=== PATIENT | female | born 1995 | race American Indian/Alaskan Native ===

== ENCOUNTER 2017-04-19 01:09 | Emergency (ER) | payer SELFPAY ==
[2017-04-19 02:01] VITALS: BP 159/96
== END 2017-04-19 02:00 | disposition left against medical advice (07) ==
LOC: ED 01:09
DX: M25.461 Effusion, right knee (principal); Z53.21 Procedure and treatment not carried out due to patient leaving prior to being seen by health care provider

== ENCOUNTER 2017-06-13 18:40 | Emergency (ER) | payer OTHER ==
[2017-06-13 19:25] LABS: Hematocrit 33.4 % (30.3-42.9); Hemoglobin 10.4 gm/dl (10.1-14.3); Mean Corpuscular HGB Conc 31 % (30-34); Mean Corpuscular Volume 77 fl (79-97); Platelet Count 381 K/mm3 (140-440); Red Blood Count 4.32 M/mm3 (3.65-5.03); Red Cell Distribution Width 16.7 % (13.2-15.2); White Blood Count 10.1 K/mm3 (4.5-11.0)
[2017-06-13 19:36] LABS: Mean Corpuscular Hemoglobin 24 pg (28-32)
--- NOTE | 2017-06-13 20:46 | Ultrasound Report ---
FINAL REPORT PROCEDURE: US OB \T\lt; = 14 WEEKS FETUS TECHNIQUE: Real-time transabdominal sonography of the uterus, placenta, amniotic fluid, adnexa, and fetus was performed with image documentation. Measurements were obtained to determine age/size. M-mode Doppler was used to document heartbeat. CPT 30053 HISTORY: Vaginal bleeding COMPARISON: No prior studies are available for comparison. FINDINGS: Uterus measures 8.7 x 4.4 x 5.3 centimeters. The endometrium is thickened at 2.2 centimeters. There is no endometrial fluid collection. There is no intrauterine gestational sac. The right ovary measures 2.2 x 2 x 2 centimeters. There is no mass or cyst or torsion. The left ovary is not seen. There is no free pelvic fluid. IMPRESSION: No demonstrated intrauterine or ectopic . The left ovary is not seen.
--- NOTE | 2017-06-13 20:47 | Ultrasound Report ---
FINAL REPORT PROCEDURE: US OB \T\lt; = 14 WEEKS FETUS TECHNIQUE: Real-time transvaginal sonography of the uterus, placenta, amniotic fluid, adnexa, and fetus was performed with image documentation. Measurements were obtained to determine age/size. M-mode Doppler was used to document heartbeat. HISTORY: Vaginal bleeding COMPARISON: No prior studies are available for comparison. FINDINGS: Uterus measures 8.7 x 4.4 x 5.3 centimeters. The endometrium is thickened at 2.2 centimeters. There is no endometrial fluid collection. There is no intrauterine gestational sac. The right ovary measures 2.2 x 2 x 2 centimeters. There is no mass or cyst or torsion. The left ovary is not seen. There is no free pelvic fluid. IMPRESSION: No demonstrated intrauterine or ectopic . The left ovary is not seen.
[2017-06-13 21:32] LABS: Alanine Aminotransferase 14 units/L (7-56); Albumin/Globulin Ratio 1.1 %; Alkaline Phosphatase 52 units/L (35-129); Anion Gap 20 mmol/L; Blood Urea Nitrogen 5 mg/dL (7-17); Calcium 9.1 mg/dL (8.4-10.2); Carbon Dioxide 21 mmol/L (22-30); Chloride 100.8 mmol/L (98-107); Glucose 91 mg/dL (65-100); Lipase 16 units/L (13-60); Sodium 138 mmol/L (137-145); Total Protein 7.6 g/dL (6.3-8.2)
[2017-06-14] MEDS ORDERED: TORADOL IM ONE (04:24)
[2017-06-14] MEDS ORDERED: NORCO 10/325 PO ONE (04:25)
[2017-06-14] MEDS ORDERED: PERCOCET 5/325 PO ONE (05:17)
--- NOTE | 2017-06-14 05:20 | Emergency Department Report ---
ED Female HPI - General Chief complaint: Vaginal Bleeding Stated complaint: MENSTRAL CYCLE MONTH AND HALF/ABD/BACK PAIN/NAUSEA Time Seen by Provider: 06/14/17 02:20 Source: patient Mode of arrival: Ambulatory Limitations: No Limitations - History of Present Illness Initial comments: She is a 22-year-old female who presents with vaginal bleeding and back pain she states that her vaginal bleeding has been going on for the past months she states that her pain is a 10 out 10 A she is having pelvic pain. It's located in her pelvis it doesn't radiate anywhere nothing makes it better or worse. The pain is constant and it's a crampy type of pain. She also states that she also has nausea and vomiting with the pelvic pain. Patient states that she is sexually active she doesn't use protection. She states that she uses out 7 pads a day. - Related Data Previous Rx's Medication Instructions Recorded Last Taken Type metroNIDAZOLE [Flagyl] 500 mg PO BID #20 tablet 12/28/14 Unknown Rx ALBUTEROL Inhaler [ProAir HFA 2 puff IH QID PRN #1 inhalation 04/24/15 Unknown Rx Inhaler] Acetamin/Codeine 120-12Mg/5 ml 5 ml PO TID PRN #30 ml 04/24/15 Unknown Rx [Tylenol/Codeine] Ibuprofen [Motrin] 800 mg PO Q8H PRN #60 tablet 04/24/15 Unknown Rx Prednisone [Prednisone 10 mg 10 mg PO .TAPER #1 tab.ds.pk 04/24/15 Unknown Rx (6-Day Pack, 21 Tabs)] Ondansetron [Zofran Odt] 4 mg PO Q6H PRN #14 tab.rapdis 06/26/15 Unknown Rx traMADol [Ultram 50 MG tab] 50 mg PO Q6HR PRN #14 tablet 06/26/15 Unknown Rx Azithromycin [Zithromax Z-JELENA] 250 mg PO DAILY #6 tablet 12/06/15 Unknown Rx Promethazine [Phenergan TAB] 25 mg PO Q8HR PRN #6 tab 12/06/15 Unknown Rx metroNIDAZOLE [Flagyl] 500 mg PO Q12HR #14 tab 12/06/15 Unknown Rx Ibuprofen [Motrin 800 MG tab] 800 mg PO Q8HR PRN #20 tablet 07/11/16 Unknown Rx Naproxen [Naproxen TAB] 250 mg PO Q8HR PRN #15 tablet 06/14/17 Unknown Rx traMADol [Ultram 50 MG tab] 50 mg PO Q6HR PRN #15 tablet 06/14/17 Unknown Rx Allergies Allergy/AdvReac Type Severity Reaction Status Date / Time No Known Allergies Allergy Verified 12/28/14 14:11 ED Review of Systems ROS: Stated complaint: MENSTRAL CYCLE MONTH AND HALF/ABD/BACK PAIN/NAUSEA Other details as noted in HPI Constitutional: denies: chills, fever Eyes: denies: eye pain, eye discharge, vision change ENT: denies: ear pain, throat pain Respiratory: denies: cough, shortness of breath, wheezing Cardiovascular: denies: chest pain, palpitations Endocrine: no symptoms reported Gastrointestinal: denies: abdominal pain, nausea, diarrhea Genitourinary: abnormal menses, other (vaginal bleeding). denies: urgency, dysuria, discharge Musculoskeletal: denies: back pain, joint swelling, arthralgia Skin: denies: rash, lesions Neurological: denies: headache, weakness, paresthesias Psychiatric: denies: anxiety, depression Hematological/Lymphatic: denies: easy bleeding, easy bruising ED Past Medical Hx - Past Medical History Hx Hypertension: No Hx CVA: No Hx Heart Attack/AMI: No Hx Congestive Heart Failure: No Hx Diabetes: No Hx Deep Vein Thrombosis: No Hx Pulmonary Embolism: No Hx GERD: No Hx Liver Disease: No Hx Renal Disease: No Hx Sickle Cell Disease: No Hx Arthritis: No Hx Headaches / Migraines: No Hx Seizures: No Hx Kidney Stones: No Hx Psychiatric Treatment: No Hx Asthma: Yes (in childhood) Hx COPD: No Hx Tuberculosis: No Hx Dementia: No Hx HIV: No - Surgical History Hx Coronary Stent: No Hx Open Heart Surgery: No Hx Pacemaker: No Hx Internal Defibrillator: No Hx Cholecystectomy: No Hx Appendectomy: No Hx Breast Surgery: No - Social History Smoking Status: Never Smoker Substance Use Type: None - Medications Home Medications: Home Medications Medication Instructions Recorded Confirmed Last Taken Type metroNIDAZOLE [Flagyl] 500 mg PO BID #20 tablet 12/28/14 Unknown Rx ALBUTEROL Inhaler [ProAir HFA 2 puff IH QID PRN #1 inhalation 04/24/15 Unknown Rx Inhaler] Acetamin/Codeine 120-12Mg/5 ml 5 ml PO TID PRN #30 ml 04/24/15 Unknown Rx [Tylenol/Codeine] Ibuprofen [Motrin] 800 mg PO Q8H PRN #60 tablet 04/24/15 Unknown Rx Prednisone [Prednisone 10 mg 10 mg PO .TAPER #1 tab.ds.pk 04/24/15 Unknown Rx (6-Day Pack, 21 Tabs)] Ondansetron [Zofran Odt] 4 mg PO Q6H PRN #14 tab.rapdis 06/26/15 Unknown Rx traMADol [Ultram 50 MG tab] 50 mg PO Q6HR PRN #14 tablet 06/26/15 Unknown Rx Azithromycin [Zithromax Z-EJLENA] 250 mg PO DAILY #6 tablet 12/06/15 Unknown Rx Promethazine [Phenergan TAB] 25 mg PO Q8HR PRN #6 tab 12/06/15 Unknown Rx metroNIDAZOLE [Flagyl] 500 mg PO Q12HR #14 tab 12/06/15 Unknown Rx Ibuprofen [Motrin 800 MG tab] 800 mg PO Q8HR PRN #20 tablet 07/11/16 Unknown Rx Naproxen [Naproxen TAB] 250 mg PO Q8HR PRN #15 tablet 06/14/17 Unknown Rx traMADol [Ultram 50 MG tab] 50 mg PO Q6HR PRN #15 tablet 06/14/17 Unknown Rx ED Physical Exam - General Limitations: No Limitations General appearance: alert, in no apparent distress - Head Head exam: Present: atraumatic, normocephalic - Eye Eye exam: Present: normal appearance - ENT ENT exam: Present: mucous membranes moist - Neck Neck exam: Present: normal inspection - Respiratory Respiratory exam: Present: normal lung sounds bilaterally. Absent: respiratory distress - Cardiovascular Cardiovascular Exam: Present: regular rate, normal rhythm. Absent: systolic murmur, diastolic murmur, rubs, gallop - GI/Abdominal GI/Abdominal exam: Present: soft, normal bowel sounds - Speculum exam: Present: vaginal bleeding (large amount of vaginal bleeding with poc), other (cervical os is open) Bi-manual exam: Absent: cervical motion tendernes, adnexal tenderness - Extremities Exam Extremities exam: Present: normal inspection - Back Exam Back exam: Present: normal inspection - Neurological Exam Neurological exam: Present: alert, oriented X3, CN II-XII intact - Psychiatric Psychiatric exam: Present: normal affect, normal mood ED Course Vital Signs 06/13/17 06/14/17 06/14/17 19:05 02:21 02:23 Temperature 98.3 F Pulse Rate 95 H 77 Respiratory 18 Rate Blood Pressure 154/96 O2 Sat by Pulse 100 99 100 Oximetry 06/14/17 06/14/17 02:24 04:40 Temperature Pulse Rate 74 Respiratory 13 20 Rate Blood Pressure 125/61 O2 Sat by Pulse 98 Oximetry - Reevaluation(s) Reevaluation #1: 06/14/17 05:23 Patient had a pelvic exam gave patient IM Toradol and oral [place].. ED Medical Decision Making - Lab Data Result diagrams: 06/13/17 19:12 06/13/17 19:12 Lab Results 06/13/17 06/13/17 06/13/17 Range/Units 19:12 19:12 19:12 WBC 10.1 (4.5-11.0) K/mm3 RBC 4.32 (3.65-5.03) M/mm3 Hgb 10.4 (10.1-14.3) gm/dl Hct 33.4 (30.3-42.9) % MCV 77 L (79-97) fl MCH 24 L (28-32) pg MCHC 31 (30-34) % RDW 16.7 H (13.2-15.2) % Plt Count 381 (140-440) K/mm3 Sodium 138 (137-145) mmol/L Potassium 4.0 (3.6-5.0) mmol/L Chloride 100.8 (98-107) mmol/L Carbon Dioxide 21 L (22-30) mmol/L Anion Gap 20 mmol/L BUN 5 L (7-17) mg/dL Creatinine 0.5 L (0.7-1.2) mg/dL Estimated GFR > 60 ml/min BUN/Creatinine Ratio 10.00 % Glucose 91 (65-100) mg/dL Calcium 9.1 (8.4-10.2) mg/dL Total Bilirubin 0.30 (0.1-1.2) mg/dL AST 12 (5-40) units/L ALT 14 (7-56) units/L Alkaline Phosphatase 52 (35-129) units/L Total Protein 7.6 (6.3-8.2) g/dL Albumin 4.0 (3.9-5) g/dL Albumin/Globulin Ratio 1.1 % Lipase 16 (13-60) units/L HCG, Quant 95.02 H (0-4) mIU/mL Blood Type 06/13/17 Range/Units 20:00 WBC (4.5-11.0) K/mm3 RBC (3.65-5.03) M/mm3 Hgb (10.1-14.3) gm/dl Hct (30.3-42.9) % MCV (79-97) fl MCH (28-32) pg MCHC (30-34) % RDW (13.2-15.2) % Plt Count (140-440) K/mm3 Sodium (137-145) mmol/L Potassium (3.6-5.0) mmol/L Chloride (98-107) mmol/L Carbon Dioxide (22-30) mmol/L Anion Gap mmol/L BUN (7-17) mg/dL Creatinine (0.7-1.2) mg/dL Estimated GFR ml/min BUN/Creatinine Ratio % Glucose (65-100) mg/dL Calcium (8.4-10.2) mg/dL Total Bilirubin (0.1-1.2) mg/dL AST (5-40) units/L ALT (7-56) units/L Alkaline Phosphatase (35-129) units/L Total Protein (6.3-8.2) g/dL Albumin (3.9-5) g/dL Albumin/Globulin Ratio % Lipase (13-60) units/L HCG, Quant (0-4) mIU/mL Blood Type O POSITIVE - Radiology Data Radiology results: report reviewed, image reviewed Transvaginal ultrasound shows no signs of ectopic or intrauterine ultrasound shows no gestational sac. - Medical Decision Making Chief medical diagnosis: Inevitable miscarriage Differential medical diagnosis: Dysfunctional uterine bleeding, , ectopic CBC, type and screen, CMP, IM Toradol, oral analgesic medication, transvaginal ultrasound Transvaginal ultrasound shows no IUP and no signs of ectopic . Pelvic exam shows open cervix os I pulled I pulled out the products of conception and some of the blood clots. Pt states that she is feeling better. 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 gave patient return precautions come to the ED additional verbal discharge instructions were given. Critical care attestation.: If time is entered above; I have spent that time in minutes in the direct care of this critically ill patient, excluding procedure time. ED Disposition Clinical Impression: Pelvic pain, Miscarriage, Vaginal bleeding Disposition: TO HOME OR SELFCARE Is pt being admited?: No Does the pt Need Aspirin: No Condition: Stable Instructions: Spontaneous Miscarriage (ED), Menstruation (ED) Prescriptions: Naproxen [Naproxen TAB] 250 mg PO Q8HR PRN #15 tablet PRN Reason: Pain traMADol [Ultram 50 MG tab] 50 mg PO Q6HR PRN #15 tablet PRN Reason: Pain Referrals: KONSTANTIN COTE MD [Staff Physician] - 3-5 Days Time of Disposition: 05:37
[2017-06-14 06:17] VITALS: BP 113/52
== END 2017-06-14 06:40 | disposition home or self-care (01) ==
LOC: ED 18:40
DX: O03.9 Complete or unspecified spontaneous abortion without complication (principal); J45.909 Unspecified asthma, uncomplicated; Z3A.00 Weeks of gestation of pregnancy not specified
CPT/HCPCS: 36415; 76801; 76817; 80053; 83690; 84702; 85027; 86900; 86901; 96372; 99284; J1885

== ENCOUNTER 2017-11-24 09:34 | Emergency (ER) | payer SELFPAY ==
[2017-11-24 09:44] VITALS: BP 143/71
[2017-11-24 11:58] LABS: HCG Qualitative,Urine Negative (Negative)
--- NOTE | 2017-11-24 12:52 | XRay Report ---
RIGHT FOOT, 3 views: History: right foot pain. The bony architecture is intact. Bony alignment is normal. No soft tissue abnormalities are seen. The joint spaces appear preserved. A moderate plantar spur is identified. IMPRESSION: Plantar spur.
--- NOTE | 2017-11-24 14:02 | Emergency Department Report ---
HPI - General Chief Complaint: Extremity Injury, Lower Time Seen by Provider: 11/24/17 13:00 - HPI HPI: She reports right-sided pain for months. She said pain is in her right heel. Denies any injury. Denies any numbness or tingling. Pain is 10 out of 10 in hurts. Patient says it's worse when she is or congestion stand. Denies any radiation of pain proximally. No [id number] pain medication taken. ED Past Medical Hx - Past Medical History Previous Medical History?: Yes Hx Hypertension: No Hx CVA: No Hx Heart Attack/AMI: No Hx Congestive Heart Failure: No Hx Diabetes: No Hx Deep Vein Thrombosis: No Hx Pulmonary Embolism: No Hx GERD: No Hx Liver Disease: No Hx Renal Disease: No Hx Sickle Cell Disease: No Hx Arthritis: No Hx Headaches / Migraines: No Hx Seizures: No Hx Kidney Stones: No Hx Psychiatric Treatment: No Hx Asthma: Yes (in childhood) Hx COPD: No Hx Tuberculosis: No Hx Dementia: No Hx HIV: No - Surgical History Past Surgical History?: No Hx Coronary Stent: No Hx Open Heart Surgery: No Hx Pacemaker: No Hx Internal Defibrillator: No Hx Cholecystectomy: No Hx Appendectomy: No Hx Breast Surgery: No - Family History Family history: no significant - Social History Smoking Status: Current Every Day Smoker Substance Use Type: None - Medications Home Medications: Home Medications Medication Instructions Recorded Confirmed Last Taken Type metroNIDAZOLE [Flagyl] 500 mg PO BID #20 tablet 12/28/14 Unknown Rx ALBUTEROL Inhaler [ProAir HFA 2 puff IH QID PRN #1 inhalation 04/24/15 Unknown Rx Inhaler] Acetamin/Codeine 120-12Mg/5 ml 5 ml PO TID PRN #30 ml 04/24/15 Unknown Rx [Tylenol/Codeine] Ibuprofen [Motrin] 800 mg PO Q8H PRN #60 tablet 04/24/15 Unknown Rx Prednisone [Prednisone 10 mg 10 mg PO .TAPER #1 tab.ds.pk 04/24/15 Unknown Rx (6-Day Pack, 21 Tabs)] Ondansetron [Zofran Odt] 4 mg PO Q6H PRN #14 tab.rapdis 06/26/15 Unknown Rx traMADol [Ultram 50 MG tab] 50 mg PO Q6HR PRN #14 tablet 06/26/15 Unknown Rx Azithromycin [Zithromax Z-JELENA] 250 mg PO DAILY #6 tablet 12/06/15 Unknown Rx Promethazine [Phenergan TAB] 25 mg PO Q8HR PRN #6 tab 12/06/15 Unknown Rx metroNIDAZOLE [Flagyl] 500 mg PO Q12HR #14 tab 12/06/15 Unknown Rx Ibuprofen [Motrin 800 MG tab] 800 mg PO Q8HR PRN #20 tablet 07/11/16 Unknown Rx Naproxen [Naproxen TAB] 250 mg PO Q8HR PRN #15 tablet 06/14/17 Unknown Rx traMADol [Ultram 50 MG tab] 50 mg PO Q6HR PRN #15 tablet 06/14/17 Unknown Rx Naproxen [Naprosyn] 500 mg PO Q12H PRN #20 tablet 11/24/17 Unknown Rx ED Review of Systems ROS: Stated complaint: PAIN IN HEEL Other details as noted in HPI Comment: All other systems reviewed and negative Constitutional: no symptoms reported Respiratory: no symptoms reported Cardiovascular: denies: chest pain, palpitations, dyspnea on exertion, edema, syncope, paroxysmal nocturnal dyspnea Gastrointestinal: denies: abdominal pain, nausea, vomiting Genitourinary: denies: urgency, dysuria, frequency Musculoskeletal: arthralgia. denies: back pain, joint swelling, myalgia Skin: denies: rash Neurological: denies: headache, numbness, paresthesias, abnormal gait Physical Exam - Physical Exam Vital Signs: Vital Signs 11/24/17 09:41 Temperature 97.8 F Pulse Rate 88 Respiratory 18 Rate Blood Pressure 143/71 O2 Sat by Pulse 100 Oximetry General: This is a 22-year-old female well-nourished well-developed in no acute distress. Physical Exam: Head: Normocephalic, atraumatic, no abrasion, no bruising and no contusion. Eyes: Biateral pupils equal and reactive to light, bilateral EOM intact.. Bilateral conjunctival and sclera without injection, normal accommodation. No nystagmus Neck: Supple, No Cervical adenopathy, full range of motion and no C-spine tenderness. No swelling or tracheal deviation normal reflexes Cardiovascular: S1, S2. Regular rate and rhythm. No murmur. Capillary refill is less then 3 seconds. Lungs: Clear to auscultate bilaterally. No rhonchi, wheezes or rales. No chest wall tenderness. No chest contusion. No bruising to chest. MSK: Strength 5/5 in all extremities. No joint deformity or crepitus. Normal inspection. Full range of motion to all extremities. No laceration, abrasion or ecchymotic area noted. Patient ambulates without any difficulties Extremities: No clubbing, cyanosis or edema. +2 pulses. No neurovascular compromise Skin: Clean, dry and intact. No rash or lesions. Neurological: GCS at 15, Pt is alert and oriented 3 speech is clear period. Bilateral hand management consulting strong and equal. Normal gait. Negative Romberg and no pronator drift. Normal Reflexes. No motor or sensory deficit Psych: Normal mood and behavior ED Course Vital Signs 11/24/17 09:41 Temperature 97.8 F Pulse Rate 88 Respiratory 18 Rate Blood Pressure 143/71 O2 Sat by Pulse 100 Oximetry - Reevaluation(s) Reevaluation #1: 11/24/17 14:45 She then Tylenol with Codeine 2 tablets in bruises to her foot pain ED Medical Decision Making - Lab Data is negative - Radiology Data Radiology results: report reviewed X-ray foot reveal plantar spur. No acute findings - Medical Decision Making ED Course: Patient reports right-sided pain over 4 months. She's never been followed by physician for problem. She says she is here K she is distended in her feet a lot and she's been having increasing pain but no radiation of pain. She is given Tylenol No. 3 2 tablets in the emergency room. x-ray of right foot reveals plantar spur without any acute findings. This was discussed with patient. I discussed the patient is to follow-up with unit manager rn. She voiced understanding and discharged home with her family members several condition with prescription for naproxen. Critical care attestation.: If time is entered above; I have spent that time in minutes in the direct care of this critically ill patient, excluding procedure time. ED Disposition Clinical Impression: Right foot pain, Bone spur of right foot Disposition: - TO HOME OR SELFCARE Is pt being admited?: No Does the pt Need Aspirin: No Condition: Stable Instructions: Arthralgia (ED) Additional Instructions: You have a condition which is referred to as plantar spur to your right foot and you'll need to follow up with unit manager rn was a wildland fire operations specialist. He can also try to use orthotics to help with pain. Naproxen as prescribed for pain. Prescriptions: Naproxen [Naprosyn] 500 mg PO Q12H PRN #20 tablet PRN Reason: Pain Referrals: [facility] [Outside] - 11/26/17 RIDGE DRUMMOND DPM [Staff Physician] - 3-5 Days Forms: Work/School Release Form(ED)
[2017-11-24] MEDS ORDERED: TYLENOL #3 PO ONE (14:04)
[2017-11-24] MEDS ORDERED: TYLENOL #3 ONE (14:05)
== END 2017-11-24 14:11 | disposition home or self-care (01) ==
LOC: ED 09:34
DX: M77.51 Other enthesopathy of right foot and ankle (principal); F17.200 Nicotine dependence, unspecified, uncomplicated; J45.909 Unspecified asthma, uncomplicated
CPT/HCPCS: 81025; 99284

== ENCOUNTER 2019-06-06 23:00 | Emergency (ER) | payer SELFPAY ==
[2019-06-07] MEDS ORDERED: ZOFRAN IV ONE (02:16)
[2019-06-07] MEDS ORDERED: NACL 0.9% 500 ML 500 ML IV ONE (02:16)
[2019-06-07] MEDS ORDERED: PEPCID IV ONE (02:16)
[2019-06-07] MEDS ORDERED: TYLENOL PO ONE (02:16)
[2019-06-07] MEDS ORDERED: TORADOL IV ONE (02:16)
--- NOTE | 2019-06-07 02:18 | Emergency Department Report ---
ED General Adult HPI - General Chief complaint: Dyspnea/Respdistress Stated complaint: CHEST PAIN, SOB, LIGHT HEADED,DEHYDRATION Time Seen by Provider: 06/07/19 01:24 Source: patient, RN notes reviewed, old records reviewed Mode of arrival: Ambulatory Limitations: No Limitations - History of Present Illness Initial comments: This is a pleasant 24-year-old female. This patient is not known to this provider previously. She reports a history of morbid obesity, and asthma. Patient presents to the ER with multiple complaints. Her first complaint is b ilateral chest wall pain that moved to the back. It is present for the past 48 hours. She reports that it is constant. The patient reports pleuritic shortness of breath. The patient denies DVT, pulmonary embolism risk factors. The patient reports that she is not . The patient reports she has not delivered her given within the past 6 weeks. The patient reports she does not take oral contraceptives. She also complains of nonproductive cough. She also complains of nausea, without vomiting. She also complains of lightheadedness. In the emergency room, patient treated with fluids, Toradol, acetaminophen, Zofran, which markedly improved her symptoms. On review of systems, the patient also endorses that she snores quite a bit at night, and feels like sleep is not restful or focal filling, and her bed partner indicates that the patient snores loudly at night, and at times, stops breathing. The patient at this point time does not have a formal diagnosis of sleep apnea. She does not smoke cigarettes, she states she has not taken aspirin recently. -: Gradual, days(s) Location: chest, back Radiation: back Severity scale (0 -10): 10 Quality: aching Consistency: constant Improves with: rest Worsens with: other (pain increases with palpation, and deep inspiration) - Related Data Previous Rx's Medication Instructions Recorded Last Taken Type metroNIDAZOLE [Flagyl] 500 mg PO BID #20 tablet 12/28/14 Unknown Rx ALBUTEROL Inhaler (OR & NICU) 2 puff IH QID PRN #1 inhalation 04/24/15 Unknown Rx [ProAir HFA Inhaler] Acetamin/Codeine 120-12Mg/5 ml 5 ml PO TID PRN #30 ml 04/24/15 Unknown Rx [Tylenol/Codeine] Ibuprofen [Motrin] 800 mg PO Q8H PRN #60 tablet 04/24/15 Unknown Rx Prednisone [Prednisone 10 mg 10 mg PO .TAPER #1 tab.ds.pk 04/24/15 Unknown Rx (6-Day Pack, 21 Tabs)] Ondansetron [Zofran Odt] 4 mg PO Q6H PRN #14 tab.rapdis 06/26/15 Unknown Rx traMADol [Ultram 50 MG tab] 50 mg PO Q6HR PRN #14 tablet 06/26/15 Unknown Rx Azithromycin [Zithromax Z-JELENA] 250 mg PO DAILY #6 tablet 12/06/15 Unknown Rx Promethazine [Phenergan TAB] 25 mg PO Q8HR PRN #6 tab 12/06/15 Unknown Rx metroNIDAZOLE [Flagyl] 500 mg PO Q12HR #14 tab 12/06/15 Unknown Rx Ibuprofen [Motrin 800 MG tab] 800 mg PO Q8HR PRN #20 tablet 07/11/16 Unknown Rx Naproxen [Naproxen TAB] 250 mg PO Q8HR PRN #15 tablet 06/14/17 Unknown Rx traMADol [Ultram 50 MG tab] 50 mg PO Q6HR PRN #15 tablet 06/14/17 Unknown Rx Naproxen [Naprosyn] 500 mg PO Q12H PRN #20 tablet 11/24/17 Unknown Rx Acetaminophen [Non-Aspirin Extra 500 mg PO Q6HR PRN #30 tablet 06/07/19 Unknown Rx Strength] Albuterol Sulfate [Proair 90 mcg IH Q4HR PRN #2 aer.pow.ba 06/07/19 Unknown Rx Respiclick] Benzonatate [Tessalon Perles] 100 mg PO Q8HR PRN #30 capsule 06/07/19 Unknown Rx Famotidine [Pepcid] 20 mg PO QDAY #30 tablet 06/07/19 Unknown Rx Fluticasone [Flonase] 1 spray NS QDAY #1 bottle 06/07/19 Unknown Rx Ibuprofen [Motrin] 600 mg PO Q8H PRN #30 tablet 06/07/19 Unknown Rx Allergies Allergy/AdvReac Type Severity Reaction Status Date / Time Penicillins Allergy Hives Verified 06/06/19 23:14 ED Review of Systems ROS: Stated complaint: CHEST PAIN, SOB, LIGHT HEADED,DEHYDRATION Other details as noted in HPI Constitutional: denies: fever Eyes: denies: eye discharge ENT: congestion Respiratory: cough, shortness of breath Cardiovascular: chest pain Gastrointestinal: nausea Genitourinary: denies: dysuria Musculoskeletal: back pain Skin: denies: lesions Neurological: weakness Psychiatric: anxiety ED Past Medical Hx - Past Medical History Hx Hypertension: No Hx CVA: No Hx Heart Attack/AMI: No Hx Congestive Heart Failure: No Hx Diabetes: No Hx Deep Vein Thrombosis: No Hx Pulmonary Embolism: No Hx GERD: No Hx Liver Disease: No Hx Renal Disease: No Hx Sickle Cell Disease: No Hx Arthritis: No Hx Headaches / Migraines: No Hx Seizures: No Hx Kidney Stones: No Hx Psychiatric Treatment: No Hx Asthma: Yes (in childhood) Hx COPD: No Hx Tuberculosis: No Hx Dementia: No Hx HIV: No - Surgical History Hx Coronary Stent: No Hx Open Heart Surgery: No Hx Pacemaker: No Hx Internal Defibrillator: No Hx Cholecystectomy: No Hx Appendectomy: No Hx Breast Surgery: No - Social History Smoking Status: Never Smoker Substance Use Type: None - Medications Home Medications: Home Medications Medication Instructions Recorded Confirmed Last Taken Type metroNIDAZOLE [Flagyl] 500 mg PO BID #20 tablet 12/28/14 Unknown Rx ALBUTEROL Inhaler (OR & NICU) 2 puff IH QID PRN #1 inhalation 04/24/15 Unknown Rx [ProAir HFA Inhaler] Acetamin/Codeine 120-12Mg/5 ml 5 ml PO TID PRN #30 ml 04/24/15 Unknown Rx [Tylenol/Codeine] Ibuprofen [Motrin] 800 mg PO Q8H PRN #60 tablet 04/24/15 Unknown Rx Prednisone [Prednisone 10 mg 10 mg PO .TAPER #1 tab.ds.pk 04/24/15 Unknown Rx (6-Day Pack, 21 Tabs)] Ondansetron [Zofran Odt] 4 mg PO Q6H PRN #14 tab.rapdis 06/26/15 Unknown Rx traMADol [Ultram 50 MG tab] 50 mg PO Q6HR PRN #14 tablet 06/26/15 Unknown Rx Azithromycin [Zithromax Z-JELENA] 250 mg PO DAILY #6 tablet 12/06/15 Unknown Rx Promethazine [Phenergan TAB] 25 mg PO Q8HR PRN #6 tab 12/06/15 Unknown Rx metroNIDAZOLE [Flagyl] 500 mg PO Q12HR #14 tab 02/05/16 Unknown Rx Ibuprofen [Motrin 800 MG tab] 800 mg PO Q8HR PRN #20 tablet 07/11/16 Unknown Rx Naproxen [Naproxen TAB] 250 mg PO Q8HR PRN #15 tablet 06/14/17 Unknown Rx traMADol [Ultram 50 MG tab] 50 mg PO Q6HR PRN #15 tablet 06/14/17 Unknown Rx Naproxen [Naprosyn] 500 mg PO Q12H PRN #20 tablet 11/24/17 Unknown Rx Acetaminophen [Non-Aspirin Extra 500 mg PO Q6HR PRN #30 tablet 06/07/19 Unknown Rx Strength] Albuterol Sulfate [Proair 90 mcg IH Q4HR PRN #2 aer.pow.ba 06/07/19 Unknown Rx Respiclick] Benzonatate [Tessalon Perles] 100 mg PO Q8HR PRN #30 capsule 06/07/19 Unknown Rx Famotidine [Pepcid] 20 mg PO QDAY #30 tablet 06/07/19 Unknown Rx Fluticasone [Flonase] 1 spray NS QDAY #1 bottle 06/07/19 Unknown Rx Ibuprofen [Motrin] 600 mg PO Q8H PRN #30 tablet 06/07/19 Unknown Rx ED Physical Exam - General Limitations: No Limitations General appearance: alert, in no apparent distress, obese - Head Head exam: Present: atraumatic, normocephalic - Eye Eye exam: Present: normal appearance, EOMI, other (visual acuity intact to finger counting, color perception, reading at a close distance). Absent: n ystagmus - ENT ENT exam: Present: normal exam, normal orophraynx, mucous membranes moist, normal external ear exam - Neck Neck exam: Present: normal inspection, full ROM. Absent: tenderness, meningismus - Respiratory Respiratory exam: Present: normal lung sounds bilaterally, chest wall tenderness, other (there is reproducible chest wall tenderness. There is no breast tenderness. Chaperoned by nurse Lilia New). Absent: respiratory distress, wheezes, rales, rhonchi, stridor - Cardiovascular Cardiovascular Exam: Present: regular rate, normal rhythm, normal heart sounds. Absent: bradycardia, tachycardia, irregular rhythm, systolic murmur, diastolic murmur, rubs, gallop - GI/Abdominal GI/Abdominal exam: Present: soft. Absent: distended, tenderness, guarding, rebound, rigid, pulsatile mass - Extremities Exam Extremities exam: Present: normal inspection, full ROM, other (2+ pulses noted in the bilateral upper, lower extremities. Compartments soft. No long bony tenderness. The pelvis is stable.). Absent: pedal edema, calf tenderness - Back Exam Back exam: Present: normal inspection, full ROM. Absent: tenderness, CVA tenderness (R), CVA tenderness (L), paraspinal tenderness, vertebral tenderness - Neurological Exam Neurological exam: Present: alert, oriented X3, normal gait (there is no past- pointing. There is normal [id number]. There is normal gait. There is a negative pronator drift.), other (Extraocular movements intact. Tongue midline. No facial droop. Facial sensation intact to light touch in the V1, V2, V3 distribution bilaterally. 5 and 5 strength in 4 extremities.. Sensation is intact to light touch in 4 extremities.). Absent: motor sensory deficit - Psychiatric Psychiatric exam: Present: normal affect, normal mood - Skin Skin exam: Present: warm, dry, intact, normal color. Absent: rash ED Course Vital Signs 06/06/19 06/07/19 06/07/19 23:37 00:21 00:30 Temperature 98.5 F 97.7 F Pulse Rate 76 71 Respiratory 16 20 Rate Blood Pressure 129/93 Blood Pressure 138/65 [Left] O2 Sat by Pulse 99 97 99 Oximetry 06/07/19 06/07/19 06/07/19 03:00 03:02 03:49 Temperature Pulse Rate 83 Respiratory 13 20 14 Rate Blood Pressure 141/72 Blood Pressure [Left] O2 Sat by Pulse 100 Oximetry 06/07/19 04:02 Temperature Pulse Rate Respiratory 21 Rate Blood Pressure Blood Pressure [Left] O2 Sat by Pulse Oximetry ED Medical Decision Making - Lab Data Result diagrams: 06/07/19 02:19 06/07/19 02:19 Vital Signs 06/06/19 06/07/19 06/07/19 23:37 00:21 00:30 Temperature 98.5 F 97.7 F Pulse Rate 76 71 Respiratory 16 20 Rate Blood Pressure 129/93 Blood Pressure 138/65 [Left] O2 Sat by Pulse 99 97 99 Oximetry 06/07/19 06/07/19 06/07/19 03:00 03:02 03:49 Temperature Pulse Rate 83 Respiratory 13 20 14 Rate Blood Pressure 141/72 Blood Pressure [Left] O2 Sat by Pulse 100 Oximetry 06/07/19 04:02 Temperature Pulse Rate Respiratory 21 Rate Blood Pressure Blood Pressure [Left] O2 Sat by Pulse Oximetry Lab Results 06/07/19 06/07/19 06/07/19 Range/Units 02:19 02:19 02:19 WBC 5.4 (4.5-11.0) K/mm3 RBC 4.25 (3.65-5.03) M/mm3 Hgb 10.7 (10.1-14.3) gm/dl Hct 33.7 (30.3-42.9) % MCV 79 (79-97) fl MCH 25 L (28-32) pg MCHC 32 (30-34) % RDW 16.5 H (13.2-15.2) % Plt Count 355 (140-440) K/mm3 PT 12.7 (12.2-14.9) Sec. INR 0.98 (0.87-1.13) APTT 24.9 (24.2-36.6) Sec. D-Dimer 222.32 (0-234) ng/mlDDU Sodium 139 (137-145) mmol/L Potassium 3.9 (3.6-5.0) mmol/L Chloride 104.3 (98-107) mmol/L Carbon Dioxide 24 (22-30) mmol/L Anion Gap 15 mmol/L BUN 8 (7-17) mg/dL Creatinine 0.6 L (0.7-1.2) mg/dL Estimated GFR > 60 ml/min BUN/Creatinine Ratio 13 % Glucose 111 H (65-100) mg/dL Calcium 9.0 (8.4-10.2) mg/dL Magnesium 1.90 (1.7-2.3) mg/dL Total Creatine Kinase 122 (30-135) units/L Troponin T < 0.010 (0.00-0.029) ng/mL HCG, Quant (0-4) mIU/mL 06/07/19 06/07/19 Range/Units 02: 02:19 WBC (4.5-11.0) K/mm3 RBC (3.65-5.03) M/mm3 Hgb (10.1-14.3) gm/dl Hct (30.3-42.9) % MCV (79-97) fl MCH (28-32) pg MCHC (30-34) % RDW (13.2-15.2) % Plt Count (140-440) K/mm3 PT (12.2-14.9) Sec. INR (0.87-1.13) APTT (24.2-36.6) Sec. D-Dimer (0-234) ng/mlDDU Sodium (137-145) mmol/L Potassium (3.6-5.0) mmol/L Chloride (98-107) mmol/L Carbon Dioxide (22-30) mmol/L Anion Gap mmol/L BUN (7-17) mg/dL Creatinine (0.7-1.2) mg/dL Estimated GFR ml/min BUN/Creatinine Ratio % Glucose (65-100) mg/dL Calcium (8.4-10.2) mg/dL Magnesium (1.7-2.3) mg/dL Total Creatine Kinase (30-135) units/L Troponin T < 0.010 (0.00-0.029) ng/mL HCG, Quant < 2 (0-4) mIU/mL - EKG Data -: EKG Interpreted by Oh EKG shows normal: sinus rhythm Rate: normal - EKG Data When compared to previous EKG there are: previous EKG unavailable 06/07/19 04:35 EKG #1 shows sinus rhythm, 66 bpm, double axis, normal intervals, QTC within normal limits, the EKG is not consistent with ST elevation myocardial infarction. EKG #2 appears to be unchanged, with the exception of nonspecific ST abnormality in the inferior leads EKG #3 appears to be unchanged, with the exception of T-wave inversion in lead 3. None of the 3 EKGs are consistent with ST elevation myocardial infarction. - Radiology Data Radiology results: report reviewed, image reviewed X-ray the chest is negative for acute disease. - Medical Decision Making Differential diagnosis, including but not limited to: GERD, gastritis, hiatal hernia, costochondritis, pneumonitis, pleuritis, pulmonary embolism, pericarditis, acute coronary syndrome Assessment and plan: 24-year-old female, no pulmonary embolism or DVT risk factors, low risk by well's criteria, negative d-dimer, perc negative, low risk for major adverse cardiac event per heart score, ERNESTO score, with reported 48 hours of constant chest wall pain, cough, with an NIH score of 0, with a GCS of 15. Objective laboratory testing is unremarkable. Chest wall pain present constantly for 48 hours, troponin negative times one, therefore, acute coronary syndrome unlikely, pericarditis, myocarditis unlikely. Patient reevaluated multiple times while here in the department, she is smiling and laughing with her significant other. Also by history appears to have undiagnosed obstructive sleep apnea. We recommended aggressive weight loss, and diet last modifications. Patient will need to follow up with an outpatient primary care doctor or radiography technician for her chest wall pain, cough, and pleuritic discomfort. She'll need to follow up with an outpatient sleep specialist for formal sleep studies. Patient is observed in the ER for a few hours, her objective testing is unremarkable, her physical exam is unremarkable, and she appears to be medically suitable to follow-up as an outpatient to complete her risk stratification, and to have an outpatient sleep study. Furthermore, her EKGs today appear to be grossly unchanged from prior EKG from 04/24/2015. Critical care attestation.: If time is entered above; I have spent that time in minutes in the direct care of this critically ill patient, excluding procedure time. ED Disposition Clinical Impression: Bronchitis, Chest wall pain Disposition: DC-01 TO HOME OR SELFCARE Is pt being admited?: No Does the pt Need Aspirin: No Condition: Stable Instructions: Costochondritis (ED), Acute Bronchitis (ED) Additional Instructions: As we discussed, patient likely has undiagnosed obstructive sleep apnea. Recommend aggressive weight loss, physical activity and diet as tolerated, and following up with an outpatient sleep specialist for formal pulmonary sleep testing. One such sleep physician is Dr. Mcknight Recommend patient follow-up for evaluation for probable sleep apnea within the next 4-6 weeks. Long-term complications of undiagnosed sleep apnea includes stroke, congestive heart failure, and disability. Recommend patient follow up with her primary care doctor or radiography technician within the next 5-7 days for chest wall pain, and reported shortness of breath. Take the cough medications as needed, pain medications as needed. Patient may participate in physical activities as tolerated. Please return to the emergency room right away with new, worsening or different symptoms, or symptoms not present on the initial emergency room evaluation. Symptoms of bronchitis typically last 4-6 weeks. Bronchitis typically does not come from bacterial infection, and typically does not improve with antibiotics. Referrals: FÉLIX JAIMES MD [Primary Care Provider] - 3-5 Days ANANTH MCKNIGHT MD [Staff Physician] - 3-5 Days [facility] [Provider Group] - 3-5 Days
[2019-06-07 02:48] LABS: INR 0.98 (0.87-1.13)
[2019-06-07 02:49] LABS: Partial Thromboplastin Time 24.9 Sec. (24.2-36.6)
--- NOTE | 2019-06-07 02:49 | XRay Report ---
CHEST 1 VIEW INDICATION / CLINICAL INFORMATION: Chest Pain. COMPARISON: None available. FINDINGS: SUPPORT DEVICES: None. HEART / MEDIASTINUM: No significant abnormality. LUNGS / PLEURA: No significant pulmonary or pleural abnormality. No pneumothorax. ADDITIONAL FINDINGS: No significant additional findings. IMPRESSION: 1. No significant change Signer Name: Mickey Banda MD Signed: 06/07/2019 2:45 AM Workstation Name: [email or web address]
[2019-06-07 02:58] LABS: BUN/Creatinine Ratio 13; Blood Urea Nitrogen 8 mg/dL (7-17); Hemolysis Index 8
[2019-06-07 03:29] VITALS: BP 141/72
[2019-06-07 03:35] LABS: Hematocrit 33.7 % (30.3-42.9); Hemoglobin 10.7 gm/dl (10.1-14.3); Mean Corpuscular HGB Conc 32 % (30-34); Mean Corpuscular Volume 79 fl (79-97); Mean Platelet Volume 7.5 fl (6-12); Platelet Count 355 K/mm3 (140-440); Red Blood Count 4.25 M/mm3 (3.65-5.03); Red Cell Distribution Width 16.5 % (13.2-15.2)
== END 2019-06-07 05:20 | disposition home or self-care (01) ==
LOC: ED 23:00
DX: J40 Bronchitis, not specified as acute or chronic (principal); R07.89 Other chest pain; J45.909 Unspecified asthma, uncomplicated; Z79.899 Other long term (current) drug therapy; Z88.0 Allergy status to penicillin
CPT/HCPCS: 36415; 71045; 80048; 82550; 83735; 84484; 84702; 85027; 85379; 85610; 85730; 93005; 93010; 96374; 96375; 99284; J1885; J2405; J7040

== ENCOUNTER 2021-10-20 18:07 | Outpatient (CLI) | payer OTHER ==
[2021-10-20] MEDS ORDERED: LACTATED RINGERS 500 ML IV ONE (19:35)
[2021-10-20] MEDS ORDERED: ACETAMINOPHEN 500 MG TAB PO ONE (19:36)
[2021-10-20 19:37] VITALS: BP 133/69
== END 2021-10-20 20:20 | disposition home or self-care (01) ==
LOC: TRG 18:07 → APU 18:09 → TRG 20:20
PROVIDERS: ATTEND Obstetrics & Gynecology
DX: Z34.93 Encounter for supervision of normal pregnancy, unspecified, third trimester (principal); Z3A.29 29 weeks gestation of pregnancy
CPT/HCPCS: 59025

== ENCOUNTER 2021-12-01 14:37 | Inpatient (IN) | payer OTHER ==
[2021-12-01] MEDS ORDERED: LACTATED RINGERS 1,000 ML IV ONE (15:00)
[2021-12-01 16:54] LABS: Bilirubin,Urine NEG (Negative); Blood,Urine NEG (Negative); Color,Urine Amber (Yellow)
[2021-12-01 16:55] LABS: RBC,Urine < 1.0 /HPF (0.0-6.0)
[2021-12-01 16:56] LABS: WBC,Urine < 1.0 /HPF (0.0-6.0)
[2021-12-01 17:44] LABS: Uric Acid 4.5 mg/dL (3.5-7.6)
[2021-12-01 17:50] LABS: Hematocrit 36.1 % (30.3-42.9); Hemoglobin 11.1 gm/dl (10.1-14.3); Mean Corpuscular HGB Conc 31 % (30-34); Mean Corpuscular Volume 83 fl (79-97); Platelet Count 345 K/mm3 (140-440); Red Blood Count 4.36 M/mm3 (3.65-5.03); Red Cell Distribution Width 15.1 % (13.2-15.2)
[2021-12-01] MEDS ORDERED: ONDANSETRON 4 MG/2 ML INJ IV PRN (18:07)
[2021-12-01] MEDS: BETAMET ACET/BETAMET NA PH 6 MG/ML INJ 5 ML MDV IM SCH (18:49)
[2021-12-01 21:52] LABS: Alanine Aminotransferase 39 units/L (7-56); Albumin 3.8 g/dL (3.9-5); Blood Urea Nitrogen 5 mg/dL (7-17); Calcium 9.4 mg/dL (8.4-10.2); Hemolysis Index 17
[2021-12-01 21:53] LABS: BUN/Creatinine Ratio 10
[2021-12-01 22:06] LABS: Creatinine,Urine 282.3 mg/dL (0.1-20.0)
--- NOTE | 2021-12-02 02:34 | Ultrasound Report ---
ULTRASOUND OBSTETRIC LIMITED INDICATION / CLINICAL INFORMATION: Gestational Hypertension. Clinical Gestational Age (GA) in weeks, days: 35 weeks 4 days TECHNIQUE: Transabdominal. COMPARISON: None available. FINDINGS: NUMBER: Single PRESENTATION: breech AMNIOTIC FLUID VOLUME: normal AMNIOTIC FLUID INDEX (AKILAH) in cm (if measured): 13.0 MEASUREMENTS: - Biparietal Diameter = 8.4 cm = 34 weeks, 0 days - Head Circumference = 32.3 cm = 36 weeks, 3 days - Abdominal Circumference = 30.5 cm = 34 weeks, 3 days - Femur Length = 5.7 cm = 29 weeks, 6 days - Estimated Weight (in grams, if calculated): 2170 g - Heart Rate (beats per minute): 138 ADDITIONAL FINDINGS: None. PERCENTILE ESTIMATED WEIGHT (if calculated): 6th percentile AVERAGE ULTRASOUND AGE (AUA) in weeks, days = 33 weeks 5 days IMPRESSION: 1. Single intrauterine in a breech presentation with AUA of 33 weeks, 5 days 2. Estimated sonographic gestational age is 2 weeks less than clinical age. Signer Name: Steph Christopher MD Signed: 12/02/2021 2:29 AM Workstation Name: [id number]
--- NOTE | 2021-12-02 03:47 | History and Physical Report ---
History of Present Illness Date of examination: 12/01/21 Date of admission: 12/01/2021 Chief complaint: Elevated BP History of present illness: 26 y/o at 35-4/7 weeks presents to [facility] with BP >160/110. She hasn't been able to eat for the past 1-2 days. She has a mild MEJIA and abdominal discomfort. No diplopia, RUQ pain, or scotomata. She has a H/O of BP >140/90 in the 1st trimester, and she was seen by MFM previously this . She is not taking any anti-HTN medications. BP's are <140/90 now. No currents signs or symptoms of severe pre-eclampsia. She was admitted by Dr. Burch for serial BP monitoring and collection of a 24 hour urine protein. Sonogram revealed EFW in the 6th %-ile. Past History Past Medical History: hypertension, other (Obesity) Past Surgical History: section Family/Genetic History: none Social history: no significant social history - Obstetrical History Expected Date of Delivery: 01/01/22 Actual Gestation: 35 Week(s) 5 Day(s) : 4 Para: 1 Number of Pregnancies: 1 Spontaneous Abortions: 2 Medications and Allergies Allergies Allergy/AdvReac Type Severity Reaction Status Date / Time Penicillins Allergy Hives Verified 06/06/19 23:14 Home Medications Medication Instructions Recorded Confirmed Last Taken Type metroNIDAZOLE [Flagyl] 500 mg PO BID #20 tablet 12/28/14 Unknown Rx Acetamin/Codeine 120-12Mg/5 ml 5 ml PO TID PRN #30 ml 04/24/15 Unknown Rx [Tylenol/Codeine] Albuterol Mdi (or & Nicu Only) 2 puff IH QID PRN #1 inhalation 04/24/15 Unknown Rx [ProAir HFA Inhaler] Ibuprofen [Motrin] 800 mg PO Q8H PRN #60 tablet 04/24/15 Unknown Rx Prednisone [Prednisone 10 mg 10 mg PO .TAPER #1 tab.ds.pk 04/24/15 Unknown Rx (6-Day Pack, 21 Tabs)] Ondansetron [Zofran Odt] 4 mg PO Q6H PRN #14 tab.rapdis 06/26/15 Unknown Rx traMADoL [Ultram 50 MG tab] 50 mg PO Q6HR PRN #14 tablet 06/26/15 Unknown Rx Azithromycin [Zithromax Z-JELENA] 250 mg PO DAILY #6 tablet 12/06/15 Unknown Rx Promethazine [Phenergan TAB] 25 mg PO Q8HR PRN #6 tab 12/06/15 Unknown Rx metroNIDAZOLE [Flagyl] 500 mg PO Q12HR #14 tab 12/06/15 Unknown Rx Ibuprofen [Motrin 800 MG tab] 800 mg PO Q8HR PRN #20 tablet 07/11/16 Unknown Rx Naproxen [Naproxen TAB] 250 mg PO Q8HR PRN #15 tablet 06/14/17 Unknown Rx traMADoL [Ultram 50 MG tab] 50 mg PO Q6HR PRN #15 tablet 06/14/17 Unknown Rx Naproxen [Naprosyn] 500 mg PO Q12H PRN #20 tablet 11/24/17 Unknown Rx Acetaminophen [Non-Aspirin Extra 500 mg PO Q6HR PRN #30 tablet 06/07/19 Unknown Rx Strength] Albuterol Sulfate [Proair 90 mcg IH Q4HR PRN #2 aer.pow.ba 06/07/19 Unknown Rx Respiclick] Benzonatate [Tessalon Perles] 100 mg PO Q8HR PRN #30 capsule 06/07/19 Unknown Rx Famotidine [Pepcid] 20 mg PO QDAY #30 tablet 06/07/19 Unknown Rx Fluticasone [Flonase] 1 spray NS QDAY #1 bottle 06/07/19 Unknown Rx Ibuprofen [Motrin] 600 mg PO Q8H PRN #30 tablet 06/07/19 Unknown Rx Active Meds: Active Medications Betamethasone Acet/Betameth SodPhos (Betamet Acet/Betamet Na Ph 6 Mg/Ml Inj 5 Ml Mdv) 12 mg IM Q24HR [facility] Last Admin: 12/01/21 18:49 Dose: 12 mg Ondansetron HCl (Ondansetron 4 Mg/2 Ml Inj) 4 mg IV Q4H PRN PRN Reason: Nausea And Vomiting Last Admin: 12/01/21 18:49 Dose: 4 mg Review of Systems All systems: negative - Vital Signs Vital signs: Vital Signs Temp Pulse Resp BP Pulse Ox 97.9 F 106 H 20 136/91 96 12/01/21 15:20 12/01/21 15:20 12/01/21 15:20 12/01/21 15:20 12/01/21 15:20 Temp Pulse Resp BP Pulse Ox 97.7 F 86 20 126/70 97 12/01/21 20:30 12/02/21 03:05 12/01/21 15:20 12/02/21 03:05 12/01/21 21:41 - Physical Exam Breasts: Positive: normal Cardiovascular: Regular rate Lungs: Positive: Normal air movement Abdomen: Positive: normal appearance Genitourinary (Female): Positive: normal external genitalia Vulva: both: normal Vagina: Positive: normal moisture Uterus: Positive: enlarged Adnexa: both: normal Anus/Rectum: Positive: normal perianal skin Extremities: Positive: normal Deep Tendon Reflex Grade: Normal +2 - Obstetrical FHR: other (NST is reactive.) Cervical Dilatation: 0 Cervical Effacement Percentage: 0 station: -3 Uterine Contraction Pattern: Absent Results Result Diagrams: 12/01/21 Unknown 12/01/21 Unknown Abnormal lab results 12/01/21 12/01/21 12/01/21 Range/Units Unknown Unknown Unknown MCH 26 L (28-32) pg Carbon Dioxide 20 L (22-30) mmol/L BUN 5 L (7-17) mg/dL Creatinine 0.5 L (0.6-1.2) mg/dL Albumin 3.8 L (3.9-5) g/dL Lipase (13-60) units/L Urine Creatinine 282.3 H (0.1-20.0) mg/dL Urine Total Protein 37 H (5-11.8) mg/dL 12/01/21 Range/Units Unknown MCH (28-32) pg Carbon Dioxide (22-30) mmol/L BUN (7-17) mg/dL Creatinine (0.6-1.2) mg/dL Albumin (3.9-5) g/dL Lipase 11 L (13-60) units/L Urine Creatinine (0.1-20.0) mg/dL Urine Total Protein (5-11.8) mg/dL All other labs normal. Ultrasound: report reviewed (SLIUP. EFW= 2170 g ( 6th %-ile)) Assessment and Plan - Patient Problems (1) 35 weeks gestation of Current Visit: Yes Status: Acute Plan to address problem: care is up-to-date with [facility]. BMTX x2 was ordered. She received 1 dose already. (2) Chronic hypertension in obstetric context in third trimester Current Visit: Yes Status: Acute Plan to address problem: This patient had BP= 144/94 (@ 12-5/7 weeks gestation) and BP= 144/86 (@ 17 weeks gestation). In addition, she states that she was on labetalol with her previous gestation. As such, I believe that this patient satisfies the diagnosis of CHRONIC HYPERTENSION (cHTN). However, she was seen by [facility] as an outpatient and their consultation note diagnosed her with gHTN/pre-eclampsia. While BP's were >160/110 in OBT, this patient's BP's are WNL now. MEJIA resolved after Zofran and eating a meal. No current signs or symptoms of severe disease. Urine Protein to Creatinine Ratio (UPCR) =0.13. Estimated 24 hour urine protein 120 mg. Await formal 24 hour urine protein collection. I recommend MFM consultation to ask them to re-review chart and formally establish this patient's diagnosis as either: a.) cHTN (and possibly adding labetalol for BP control), b.) severe gestational hypertension, or c.) pre- eclampsia w/ severe features. Consult placed. (3) Previous section complicating , antepartum condition or complication Current Visit: Yes Status: Acute Plan to address problem: The patient had a previous . The patient states it was a LTCS. At this point, the patient desires RCS. If she wants a TOLAC, then we need a copy of the operative report. (4) IUGR, Current Visit: Yes Status: Acute Plan to address problem: EFW is in the 6th %-ile. Umbilical artery dopplers and BPP ordered for 12/02/2021 at 8:00 a.m.. Need to consult MFM in AM. She has Dr. Juancarlos cortez before as an outpatient.
[2021-12-02] MEDS ORDERED: MAGNESIUM SULFATE 4 GM/100 ML BAG IV ONE (09:30)
--- NOTE | 2021-12-02 09:59 | Ultrasound Report ---
ULTRASOUND OBSTETRIC LIMITED ULTRASOUND BIOPHYSICAL PROFILE ULTRASOUND OB VELOCIMETRY UMBILICAL ARTERY INDICATION / CLINICAL INFORMATION: IUGR. COMPARISON: OB ultrasound performed on 12/01/2021. FINDINGS: BREATHING MOVEMENT = 0 GROSS BODY MOVEMENT = 2 TONE = 2 QUALITATIVE AMNIOTIC FLUID VOLUME = 2 TOTAL BIOPHYSICAL SCORE = 6/8 AMNIOTIC FLUID INDEX (cm) = not measured PRESENTATION: Cephalic. HEART RATE (beats per minute): 132 3 segments of the umbilical cord were evaluated. The spectral wave forms are normal and persistent. Average S/D ratio measures: 2.76 Average resistive index measures: 0.63 ADDITIONAL FINDINGS: None. IMPRESSION: 1. Biophysical Score = 6/8 2. Unremarkable umbilical cord Doppler. Signer Name: Arnoldo Kwong MD Signed: 12/02/2021 9:55 AM Workstation Name: [id number] [employer]
[2021-12-02] MEDS ORDERED: MAGNESIUM SULFATE 40GM/1000ML 40 GM/1,000 ML BAG IV SCH (10:00)
[2021-12-02] MEDS ORDERED: LACTATED RINGERS 1,000 ML IV ONE (11:00)
[2021-12-02 11:02] LABS: Basophils % (Auto) 0.1 % (0.0-1.8); Eosinophils % (Auto) 0.1 % (0.0-4.3); Hematocrit 32.6 % (30.3-42.9); Hemoglobin 10.3 gm/dl (10.1-14.3); Lymphocytes # (Auto) 1.1 K/mm3 (1.2-5.4); Lymphocytes % (Auto) 16.6 % (13.4-35.0); Mean Corpuscular HGB Conc 32 % (30-34); Mean Corpuscular Volume 83 fl (79-97); Monocytes # (Auto) 0.5 K/mm3 (0.0-0.8); Monocytes % (Auto) 7.5 % (0.0-7.3); Platelet Count 323 K/mm3 (140-440); Red Blood Count 3.92 M/mm3 (3.65-5.03); Red Cell Distribution Width 15.1 % (13.2-15.2)
[2021-12-02 11:16] LABS: Alanine Aminotransferase 49 units/L (7-56); Albumin 3.4 g/dL (3.9-5); Blood Urea Nitrogen 5 mg/dL (7-17); Calcium 9.1 mg/dL (8.4-10.2); Hemolysis Index 18
[2021-12-02 11:18] LABS: BUN/Creatinine Ratio 13
--- NOTE | 2021-12-02 11:47 | Progress Note ---
Subjective - Subjective Date of service: 12/02/21 Interval history: [facility] consult and recommendations appreciated Plan for MGSO4, sweeney catheter strict input and output monitor epigatric pain Plan for completion of steroids and delivery(previous c/section, will ,make NPO after midnight for delivery in AM) plan of care discussed with patient Karina Lyles MD Objective - Vital Signs Vital Signs: Vital Signs - 12hr 12/02/21 12/02/21 12/02/21 00:05 00:35 02:05 Pulse Rate 80 102 H 77 Blood Pressure 121/69 129/85 126/65 O2 Sat by Pulse Oximetry [ Bilateral Throughout] 12/02/21 12/02/21 12/02/21 03:05 04:05 05:05 Pulse Rate 86 85 95 H Blood Pressure 126/70 125/58 133/76 O2 Sat by Pulse Oximetry [ Bilateral Throughout] 12/02/21 12/02/21 12/02/21 06:05 07:04 08:05 Pulse Rate 78 108 H 88 Blood Pressure 149/79 135/72 171/74 O2 Sat by Pulse Oximetry [ Bilateral Throughout] 12/02/21 12/02/21 12/02/21 09:05 10:05 11:13 Pulse Rate 110 H 86 Blood Pressure 134/73 140/94 O2 Sat by Pulse 98 Oximetry [ Bilateral Throughout] - Labs Labs: Abnormal Labs 12/01/21 12/01/21 12/01/21 Unknown Unknown Unknown MCH 26 L [place] % (Auto) Lymph # (Auto) Seg Neutrophils % Sodium Carbon Dioxide 20 L BUN 5 L Creatinine 0.5 L AST Albumin 3.8 L Lipase Urine Creatinine 282.3 H Urine Total Protein 37 H 12/01/21 12/02/21 12/02/21 Unknown Unknown Unknown MCH 26 L [place] % (Auto) 7.5 H Lymph # (Auto) 1.1 L Seg Neutrophils % 75.7 H Sodium 135 L Carbon Dioxide 20 L BUN 5 L Creatinine 0.4 L AST 44 H Albumin 3.4 L Lipase 11 L Urine Creatinine Urine Total Protein Laboratory Results - last 24 hr 12/01/21 12/01/21 12/01/21 Unknown Unknown Unknown WBC 7.8 RBC 4.36 Hgb 11.1 Hct 36.1 MCV 83 MCH 26 L MCHC 31 RDW 15.1 Plt Count 345 Lymph % (Auto) [place] % (Auto) Eos % (Auto) Baso % (Auto) Lymph # (Auto) [place] # (Auto) Eos # (Auto) Baso # (Auto) Seg Neutrophils % Seg Neutrophils # Sodium Potassium Chloride Carbon Dioxide Anion Gap BUN Creatinine Estimated GFR BUN/Creatinine Ratio Glucose Uric Acid 4.5 Calcium Total Bilirubin AST 33 ALT 39 Alkaline Phosphatase Lactate Dehydrogenase 178 Total Protein Albumin Albumin/Globulin Ratio Amylase Lipase Urine Color Lois Urine Turbidity Clear Urine pH 6.0 Ur Specific [place] 1.024 Urine Protein 30 mg/dl Urine Glucose (UA) Neg Urine Ketones 20 Urine Blood Neg Urine Nitrite Neg Urine Bilirubin Neg Urine Urobilinogen 4.0 Ur Leukocyte Esterase Neg Urine WBC (Auto) < 1.0 Urine RBC (Auto) < 1.0 Urine Creatinine Urine Total Protein 12/01/21 12/01/21 12/01/21 Unknown Unknown Unknown WBC RBC Hgb Hct MCV MCH MCHC RDW Plt Count Lymph % (Auto) [place] % (Auto) Eos % (Auto) Baso % (Auto) Lymph # (Auto) [place] # (Auto) Eos # (Auto) Baso # (Auto) Seg Neutrophils % Seg Neutrophils # Sodium 138 Potassium 3.9 Chloride 100.4 Carbon Dioxide 20 L Anion Gap 22 BUN 5 L Creatinine 0.5 L Estimated GFR > 60 BUN/Creatinine Ratio 10 Glucose 69 Uric Acid Calcium 9.4 Total Bilirubin 0.40 AST 35 ALT 39 Alkaline Phosphatase 122 Lactate Dehydrogenase Total Protein 7.8 Albumin 3.8 L Albumin/Globulin Ratio 1.0 Amylase 30 Lipase 11 L Urine Color Urine Turbidity Urine pH Ur Specific [place] Urine Protein Urine Glucose (UA) Urine Ketones Urine Blood Urine Nitrite Urine Bilirubin Urine Urobilinogen Ur Leukocyte Esterase Urine WBC (Auto) Urine RBC (Auto) Urine Creatinine 282.3 H Urine Total Protein 37 H 12/02/21 12/02/21 Unknown Unknown WBC 6.8 RBC 3.92 Hgb 10.3 Hct 32.6 MCV 83 MCH 26 L MCHC 32 RDW 15.1 Plt Count 323 Lymph % (Auto) 16.6 [place] % (Auto) 7.5 H Eos % (Auto) 0.1 Baso % (Auto) 0.1 Lymph # (Auto) 1.1 L [place] # (Auto) 0.5 Eos # (Auto) 0.0 Baso # (Auto) 0.0 Seg Neutrophils % 75.7 H Seg Neutrophils # 5.2 Sodium 135 L Potassium 4.1 Chloride 99.8 Carbon Dioxide 20 L Anion Gap 19 BUN 5 L Creatinine 0.4 L Estimated GFR > 60 BUN/Creatinine Ratio 13 Glucose 92 Uric Acid Calcium 9.1 Total Bilirubin 0.30 AST 44 H ALT 49 Alkaline Phosphatase 115 Lactate Dehydrogenase Total Protein 7.2 Albumin 3.4 L Albumin/Globulin Ratio 0.9 Amylase Lipase Urine Color Urine Turbidity Urine pH Ur Specific [place] Urine Protein Urine Glucose (UA) Urine Ketones Urine Blood Urine Nitrite Urine Bilirubin Urine Urobilinogen Ur Leukocyte Esterase Urine WBC (Auto) Urine RBC (Auto) Urine Creatinine Urine Total Protein
--- NOTE | 2021-12-02 12:09 | Consultation ---
History of Present Illness Consult date: 12/02/21 Requesting physician: VIVEK CRAIN History of present illness: Ms. Schultz is at 26 y/o MEGAN 01/01/22 EGA at 35 5/7 weeks Presented with N/V, MEJIA, [place] and elevated BP's on 12/01/21 186/91 and 167/80 Reports eating [employer] and her and other family members with food poisoning H/O Preeclampsia and C/S in 2020 at 36 weeks BP's now improved 130's/70's - symptoms improved [facility] US - 12/01/21 - FGR with EFW at 2170 grams 6% [facility] US 11/14/21 EFW at 2222 grams 56% weight loss over 2 weeks Nurse report urine output miminal AST/ALT at 35/39 Plts at 345 Creat at .5 UA at 30 mg spot EFM 130's cat I BPP6/8 - minus 2 breathing Ob history - C/S FTP Preeclampsia at 36 weeks All PCN Past History Past Medical History: hypertension, other (Obesity) Past Surgical History: section Family/Genetic History: none - Obstetrical History : 4 Medications and Allergies Allergies Allergy/AdvReac Type Severity Reaction Status Date / Time Penicillins Allergy Hives Verified 06/06/19 23:14 Home Medications Medication Instructions Recorded Confirmed Last Taken Type metroNIDAZOLE [Flagyl] 500 mg PO BID #20 tablet 12/28/14 Unknown Rx Acetamin/Codeine 120-12Mg/5 ml 5 ml PO TID PRN #30 ml 04/24/15 Unknown Rx [Tylenol/Codeine] Albuterol Mdi (or & Nicu Only) 2 puff IH QID PRN #1 inhalation 04/24/15 Unknown Rx [ProAir HFA Inhaler] Ibuprofen [Motrin] 800 mg PO Q8H PRN #60 tablet 04/24/15 Unknown Rx Prednisone [Prednisone 10 mg 10 mg PO .TAPER #1 tab.ds.pk 04/24/15 Unknown Rx (6-Day Pack, 21 Tabs)] Ondansetron [Zofran Odt] 4 mg PO Q6H PRN #14 tab.rapdis 06/26/15 Unknown Rx traMADoL [Ultram 50 MG tab] 50 mg PO Q6HR PRN #14 tablet 06/26/15 Unknown Rx Azithromycin [Zithromax Z-JELENA] 250 mg PO DAILY #6 tablet 12/06/15 Unknown Rx Promethazine [Phenergan TAB] 25 mg PO Q8HR PRN #6 tab 12/06/15 Unknown Rx metroNIDAZOLE [Flagyl] 500 mg PO Q12HR #14 tab 12/06/15 Unknown Rx Ibuprofen [Motrin 800 MG tab] 800 mg PO Q8HR PRN #20 tablet 07/11/16 Unknown Rx Naproxen [Naproxen TAB] 250 mg PO Q8HR PRN #15 tablet 06/14/17 Unknown Rx traMADoL [Ultram 50 MG tab] 50 mg PO Q6HR PRN #15 tablet 06/14/17 Unknown Rx Naproxen [Naprosyn] 500 mg PO Q12H PRN #20 tablet 11/24/17 Unknown Rx Acetaminophen [Non-Aspirin Extra 500 mg PO Q6HR PRN #30 tablet 06/07/19 Unknown Rx Strength] Albuterol Sulfate [Proair 90 mcg IH Q4HR PRN #2 aer.[id number] 06/07/19 Unknown Rx Respiclick] Benzonatate [Tessalon Perles] 100 mg PO Q8HR PRN #30 capsule 06/07/19 Unknown Rx Famotidine [Pepcid] 20 mg PO QDAY #30 tablet 06/07/19 Unknown Rx Fluticasone [Flonase] 1 spray NS QDAY #1 bottle 06/07/19 Unknown Rx Ibuprofen [Motrin] 600 mg PO Q8H PRN #30 tablet 06/07/19 Unknown Rx Active Meds: Active Medications Betamethasone Acet/Betameth SodPhos (Betamet Acet/Betamet Na Ph 6 Mg/Ml Inj 5 Ml Mdv) 12 mg IM Q24HR BULL Last Admin: 12/01/21 18:49 Dose: 12 mg Magnesium Sulfate (Magnesium Sulfate 40gm/1000ml) 40 gm in 1,000 mls @ 50 mls/hr IV DIRECT BULL Ondansetron HCl (Ondansetron 4 Mg/2 Ml Inj) 4 mg IV Q4H PRN PRN Reason: Nausea And Vomiting Last Admin: 12/01/21 18:49 Dose: 4 mg - Vital Signs Vital signs: Vital Signs Temp Pulse Resp BP Pulse Ox 97.9 F 106 H 20 136/91 96 12/01/21 15:20 12/01/21 15:20 12/01/21 15:20 12/01/21 15:20 12/01/21 15:20 Temp Pulse Resp BP Pulse Ox 97.7 F 83 20 183/89 98 12/01/21 20:30 12/02/21 11:43 12/01/21 15:20 12/02/21 11:43 12/02/21 11:13 Results Result Diagrams: 12/02/21 Unknown 12/02/21 Unknown Abnormal lab results 12/01/21 12/01/21 12/01/21 Range/Units Unknown Unknown Unknown MCH 26 L (28-32) pg [place] % (Auto) (0.0-7.3) % Lymph # (Auto) (1.2-5.4) K/mm3 Seg Neutrophils % (40.0-70.0) % Sodium (137-145) mmol/L Carbon Dioxide 20 L (22-30) mmol/L BUN 5 L (7-17) mg/dL Creatinine 0.5 L (0.6-1.2) mg/dL AST (5-40) units/L Albumin 3.8 L (3.9-5) g/dL Lipase (13-60) units/L Urine Creatinine 282.3 H (0.1-20.0) mg/dL Urine Total Protein 37 H (5-11.8) mg/dL 12/01/21 12/02/21 12/02/21 Range/Units Unknown Unknown Unknown MCH 26 L (28-32) pg [place] % (Auto) 7.5 H (0.0-7.3) % Lymph # (Auto) 1.1 L (1.2-5.4) K/mm3 Seg Neutrophils % 75.7 H (40.0-70.0) % Sodium 135 L (137-145) mmol/L Carbon Dioxide 20 L (22-30) mmol/L BUN 5 L (7-17) mg/dL Creatinine 0.4 L (0.6-1.2) mg/dL AST 44 H (5-40) units/L Albumin 3.4 L (3.9-5) g/dL Lipase 11 L (13-60) units/L Urine Creatinine (0.1-20.0) mg/dL Urine Total Protein (5-11.8) mg/dL All other labs normal. Assessment and Plan Assess 1. [place] IUP at 35 5/7 weeks 2. Gest HTN R/O Preeclampsia 3. FGR with weight loss over 2 weeks 4. H/O Preeclampsia at 36 weeks 5. Prior C/S 6. MO Rec 1. NICU consult 2. Steroids for FLM 3. Rec delivery secondary to FGR with suspected preeclampsia and weight loss over [address] Crain 5. Reviewed findings with patient and in agreement
[2021-12-02] MEDS ORDERED: LACTATED RINGERS 1,000 ML ONE ×2 (17:24→22:19)
--- NOTE | 2021-12-02 18:15 | Progress Note ---
Subjective - Subjective Date of service: 12/02/21 Interval history: CHTN with SI PE with severe features IUGR Borderline Oligouria-concentrated appearance(~250ml over last 6 hours) elevated LFT's Plan for second dose of steroids and delivery(second dose scheduled for 19:00) NPO for operative delivery: will sogn out to oncoming team: if stable will plan for delivery in AM otherwise delivery this evening FHT Cat 1 overall maternal and status reassuring Karina Lyles MD Objective - Vital Signs Vital Signs: Vital Signs - 12hr 12/02/21 12/02/21 12/02/21 07:04 08:05 09:05 Pulse Rate 108 H 88 110 H Blood Pressure 135/72 171/74 134/73 O2 Sat by Pulse Oximetry O2 Sat by Pulse Oximetry [ Bilateral Throughout] 12/02/21 12/02/21 12/02/21 10:05 11:13 11:43 Pulse Rate 86 83 Blood Pressure 140/94 183/89 O2 Sat by Pulse Oximetry O2 Sat by Pulse 98 Oximetry [ Bilateral Throughout] 12/02/21 12/02/21 12/02/21 12:12 12:15 12:20 Pulse Rate 97 H 91 H 102 H Blood Pressure 130/61 O2 Sat by Pulse 100 99 Oximetry O2 Sat by Pulse Oximetry [ Bilateral Throughout] 12/02/21 12/02/21 12/02/21 12:25 12:27 12:29 Pulse Rate 98 H 95 H 106 H Blood Pressure 136/54 O2 Sat by Pulse 99 87 Oximetry O2 Sat by Pulse Oximetry [ Bilateral Throughout] 12/02/21 12/02/21 12/02/21 12:30 12:34 12:35 Pulse Rate 110 H 106 H 106 H Blood Pressure O2 Sat by Pulse 100 93 98 Oximetry O2 Sat by Pulse Oximetry [ Bilateral Throughout] 12/02/21 12/02/21 12/02/21 12:40 12:42 12:45 Pulse Rate 109 H 97 H 101 H Blood Pressure 149/66 O2 Sat by Pulse 92 99 Oximetry O2 Sat by Pulse Oximetry [ Bilateral Throughout] 12/02/21 12/02/21 12/02/21 12:50 12:57 13:12 Pulse Rate 102 H 100 H 95 H Blood Pressure 145/58 157/80 O2 Sat by Pulse 94 Oximetry O2 Sat by Pulse Oximetry [ Bilateral Throughout] 12/02/21 12/02/21 12/02/21 13:27 13:36 13:37 Pulse Rate 86 99 H Blood Pressure 152/82 O2 Sat by Pulse 90 98 Oximetry O2 Sat by Pulse Oximetry [ Bilateral Throughout] 12/02/21 12/02/21 12/02/21 13:42 13:47 13:52 Pulse Rate 87 90 92 H Blood Pressure 160/71 O2 Sat by Pulse 99 98 98 Oximetry O2 Sat by Pulse Oximetry [ Bilateral Throughout] 12/02/21 12/02/21 12/02/21 13:57 14:02 14:07 Pulse Rate 86 84 98 H Blood Pressure 159/71 O2 Sat by Pulse 98 98 98 Oximetry O2 Sat by Pulse Oximetry [ Bilateral Throughout] 12/02/21 12/02/21 12/02/21 14:12 14:17 14:22 Pulse Rate 88 94 H 102 H Blood Pressure 163/76 O2 Sat by Pulse 98 98 99 Oximetry O2 Sat by Pulse Oximetry [ Bilateral Throughout] 12/02/21 12/02/21 12/02/21 14:27 14:32 14:37 Pulse Rate 85 87 101 H Blood Pressure 130/60 O2 Sat by Pulse 98 97 98 Oximetry O2 Sat by Pulse Oximetry [ Bilateral Throughout] 12/02/21 12/02/21 12/02/21 14:42 14:47 14:52 Pulse Rate 106 H 103 H 103 H Blood Pressure O2 Sat by Pulse 98 99 98 Oximetry O2 Sat by Pulse Oximetry [ Bilateral Throughout] 12/02/21 12/02/21 12/02/21 14:57 15:02 15:07 Pulse Rate 100 H 92 H 92 H Blood Pressure 150/78 O2 Sat by Pulse 98 97 98 Oximetry O2 Sat by Pulse Oximetry [ Bilateral Throughout] 12/02/21 12/02/21 12/02/21 15:12 15:17 15:22 Pulse Rate 100 H 94 H 95 H Blood Pressure 126/60 O2 Sat by Pulse 98 97 98 Oximetry O2 Sat by Pulse Oximetry [ Bilateral Throughout] 12/02/21 12/02/21 12/02/21 15:27 15:32 15:37 Pulse Rate 90 92 H 118 H Blood Pressure 115/59 O2 Sat by Pulse 97 98 97 Oximetry O2 Sat by Pulse Oximetry [ Bilateral Throughout] 12/02/21 12/02/21 12/02/21 15:42 15:47 15:52 Pulse Rate 99 H 104 H 98 H Blood Pressure 108/55 O2 Sat by Pulse 98 99 99 Oximetry O2 Sat by Pulse Oximetry [ Bilateral Throughout] 12/02/21 12/02/21 12/02/21 15:57 16:02 16:07 Pulse Rate 104 H 97 H 111 H Blood Pressure 125/57 O2 Sat by Pulse 99 98 99 Oximetry O2 Sat by Pulse Oximetry [ Bilateral Throughout] 12/02/21 12/02/21 12/02/21 16:12 16:17 16:22 Pulse Rate 104 H 104 H 103 H Blood Pressure 135/65 O2 Sat by Pulse 98 97 98 Oximetry O2 Sat by Pulse Oximetry [ Bilateral Throughout] 12/02/21 12/02/21 12/02/21 16:27 16:32 16:37 Pulse Rate 93 H 100 H 101 H Blood Pressure 103/54 O2 Sat by Pulse 97 98 98 Oximetry O2 Sat by Pulse Oximetry [ Bilateral Throughout] 12/02/21 12/02/21 12/02/21 16:42 16:47 16:52 Pulse Rate 89 93 H 82 Blood Pressure 132/60 O2 Sat by Pulse 98 98 98 Oximetry O2 Sat by Pulse Oximetry [ Bilateral Throughout] 12/02/21 12/02/21 12/02/21 16:57 17:02 17:07 Pulse Rate 89 90 92 H Blood Pressure 133/59 O2 Sat by Pulse 99 100 99 Oximetry O2 Sat by Pulse Oximetry [ Bilateral Throughout] 12/02/21 12/02/21 12/02/21 17:11 17:12 17:17 Pulse Rate 92 H 92 H 84 Blood Pressure 142/63 O2 Sat by Pulse 99 99 Oximetry O2 Sat by Pulse Oximetry [ Bilateral Throughout] 12/02/21 12/02/21 12/02/21 17:22 17:27 17:32 Pulse Rate 96 H 91 H 96 H Blood Pressure 148/68 O2 Sat by Pulse 99 98 99 Oximetry O2 Sat by Pulse Oximetry [ Bilateral Throughout] 12/02/21 12/02/21 12/02/21 17:37 17:42 17:47 Pulse Rate 99 H 89 103 H Blood Pressure 158/72 O2 Sat by Pulse 99 99 98 Oximetry O2 Sat by Pulse Oximetry [ Bilateral Throughout] 12/02/21 12/02/21 12/02/21 17:52 17:57 18:02 Pulse Rate 109 H 94 H 86 Blood Pressure 133/61 O2 Sat by Pulse 98 98 98 Oximetry O2 Sat by Pulse Oximetry [ Bilateral Throughout] 12/02/21 12/02/21 12/02/21 18:03 18:07 18:12 Pulse Rate 96 H 88 92 H Blood Pressure 119/57 O2 Sat by Pulse 94 98 98 Oximetry O2 Sat by Pulse Oximetry [ Bilateral Throughout] - Labs Labs: Abnormal Labs 12/01/21 12/01/21 12/01/21 Unknown Unknown Unknown MCH 26 L [place] % (Auto) Lymph # (Auto) Seg Neutrophils % Sodium Carbon Dioxide 20 L BUN 5 L Creatinine 0.5 L AST Albumin 3.8 L Lipase Urine Creatinine 282.3 H Urine Total Protein 37 H 12/01/21 12/02/21 12/02/21 Unknown Unknown Unknown MCH 26 L [place] % (Auto) 7.5 H Lymph # (Auto) 1.1 L Seg Neutrophils % 75.7 H Sodium 135 L Carbon Dioxide 20 L BUN 5 L Creatinine 0.4 L AST 44 H Albumin 3.4 L Lipase 11 L Urine Creatinine Urine Total Protein Laboratory Results - last 24 hr 12/01/21 12/01/21 12/01/21 Unknown Unknown Unknown WBC RBC Hgb Hct MCV MCH MCHC RDW Plt Count Lymph % (Auto) [place] % (Auto) Eos % (Auto) Baso % (Auto) Lymph # (Auto) [place] # (Auto) Eos # (Auto) Baso # (Auto) Seg Neutrophils % Seg Neutrophils # Sodium 138 Potassium 3.9 Chloride 100.4 Carbon Dioxide 20 L Anion Gap 22 BUN 5 L Creatinine 0.5 L Estimated GFR > 60 BUN/Creatinine Ratio 10 Glucose 69 Calcium 9.4 Total Bilirubin 0.40 AST 35 ALT 39 Alkaline Phosphatase 122 Total Protein 7.8 Albumin 3.8 L Albumin/Globulin Ratio 1.0 Amylase 30 Lipase 11 L Urine Creatinine 282.3 H Urine Total Protein 37 H 12/02/21 12/02/21 Unknown Unknown WBC 6.8 RBC 3.92 Hgb 10.3 Hct 32.6 MCV 83 MCH 26 L MCHC 32 RDW 15.1 Plt Count 323 Lymph % (Auto) 16.6 [place] % (Auto) 7.5 H Eos % (Auto) 0.1 Baso % (Auto) 0.1 Lymph # (Auto) 1.1 L [place] # (Auto) 0.5 Eos # (Auto) 0.0 Baso # (Auto) 0.0 Seg Neutrophils % 75.7 H Seg Neutrophils # 5.2 Sodium 135 L Potassium 4.1 Chloride 99.8 Carbon Dioxide 20 L Anion Gap 19 BUN 5 L Creatinine 0.4 L Estimated GFR > 60 BUN/Creatinine Ratio 13 Glucose 92 Calcium 9.1 Total Bilirubin 0.30 AST 44 H ALT 49 Alkaline Phosphatase 115 Total Protein 7.2 Albumin 3.4 L Albumin/Globulin Ratio 0.9 Amylase Lipase Urine Creatinine Urine Total Protein
[2021-12-02] MEDS ORDERED: BICITRA ORAL LIQD 30ML PO ONE (18:20)
[2021-12-02] MEDS ORDERED: METOCLOPRAMIDE 10 MG/2 ML INJ IV SCH (18:20)
[2021-12-02] MEDS ORDERED: fentaNYL 100 MCG/2 ML INJ IV PRN (18:22)
[2021-12-02] MEDS ORDERED: ACETAMINOPHEN 325 MG TAB PO PRN (18:22)
[2021-12-02] MEDS ORDERED: BUTORPHANOL 2 MG/1 ML INJ IV PRN ×2 (18:22)
[2021-12-02] MEDS ORDERED: NalbUPHINE 10 MG/1 ML INJ IV PRN (18:22)
[2021-12-02] MEDS: BETAMET ACET/BETAMET NA PH 6 MG/ML INJ 5 ML MDV IM SCH (18:33)
[2021-12-02] MEDS ORDERED: FAMOTIDINE 20 MG/2 ML INJ IV ONE (19:00)
[2021-12-02] MEDS ORDERED: OXYTOCIN DRIP 30,000 MILLIUNITS/500 ML BAG IV ONE (23:27)
--- NOTE | 2021-12-02 23:36 | Event Note ---
Date: 12/02/21 CC: cHTN w/ superimposed pre-eclampsia, IUGR INTERVAL HISTORY: 26 y/o at 35-5/7 weeks admitted for management of cHTN w/ superimposed pre-eclampsia and IUGR. BP's are intermittently >160/110. BMTZ x2 administered, and the last dose was at ~ 19:00 tonight. She was seen by MFM. I spoke with Dr. Bauer this evening who recommended delivery at 36 weeks. UPCR showed estimated 24 hour urine protein = 120 mg, but a formal 24 hour urine protein is in progress. MgSO4 drip for seizure prophylaxis. No VB, LOF, or CTX. Good FM. The patient discussed the possibility of TOLAC. The R/A/B were explained, including the risk of uterine rupture (less than 1%). The patient voiced understanding and wished to attempt . O: BP= 144/92 EFM= category 1 TOCO= none SVE= closed/thick/-3. Cook catheter inserted under direct visualization and inflated with 80 mL of NS. The Cook catheter was placed to traction. LABS: GBS Culture (rectovaginal)= pending 24 hour urine collection= in progress RAD: BPP= 6/8 OB Umbilical Artery Dopplers= WNL IMP: 1.) 35 weeks 2.) cHTN w/ superimposed pre-eclampsia 3.) IUGR (moderate, 6th %-ile) 4.) IOL 5.) H/O Previous PLAN: 1.) S/P BMTZ x2. GBS RV culture ordered. Rx Ancef IV for GBS prophylaxis in lieu of PCN allergy. 2.) Seen by MFM. Delivery at 36 weeks recommended per telephone conversation. MgSO4 in active labor. Rx IV anti-HTN meds to keep BP <160/110. 3.) Etiology of IUGR is unknown. IOL per DIGITAT trial to decrease the risk of stillbirth. UA dopplers and EFM WNL. 4.) Ripening cervix with Cook catheter and low-dose pitocin. AROM when possible.
[2021-12-02] MEDS ORDERED: OXYTOCIN DRIP 30 UNITS/500 ML BAG IV SCH (23:45)
[2021-12-03] MEDS ORDERED: LACTATED RINGERS 1,000 ML ONE (07:52)
[2021-12-03] MEDS ORDERED: LACTATED RINGERS 250 ML IV SOLN IV ONE (08:24)
[2021-12-03] MEDS ORDERED: diphenhydrAMINE 50 MG/ML VIAL IV PRN (08:30)
[2021-12-03] MEDS ORDERED: ePHEDrine SULFATE 50 MG/1 ML INJ IV PRN (08:30)
[2021-12-03] MEDS: ceFAZolin/NS 1 GM/50 ML 1 GM/50 ML BAG IV SCH ×2 (08:38→17:30)
[2021-12-03] MEDS ORDERED: ONDANSETRON 4 MG/2 ML INJ IV PRN (09:00)
[2021-12-03] MEDS ORDERED: NALOXONE 2 MG/2 ML INJ IV PRN (09:00)
[2021-12-03] MEDS ORDERED: NalbUPHINE 10 MG/1 ML INJ IV PRN (09:00)
[2021-12-03] MEDS ORDERED: LACTATED RINGERS 1,000 ML IV SCH (10:00)
--- NOTE | 2021-12-03 10:06 | Anesthesia Consultation ---
Anesthesia Consult and Med Hx Date of service: 12/03/21 - Airway Anesthetic Teeth Evaluation: Good ROM Head & Neck: Adequate Mental/Hyoid Distance: Adequate Mallampati Class: Class III Intubation Access Assessment: Possibly Difficult - Pulmonary Exam CTA: Yes - Cardiac Exam Cardiac Exam: RRR - Pre-Operative Health Status ASA Pre-Surgery Classification: ASA3 Proposed Anesthetic Plan: Epidural - Pulmonary Hx Smoking: No Hx Asthma: Yes COPD: No Hx Pneumonia: No Hx Sleep Apnea: No - Cardiovascular System Hx Hypertension: Yes (GESTATION HTN) Hx Heart Attack/AMI: No Hx Angina: No Hx Pacemaker: No Hx Internal Defibrillator: No - Central Nervous System Hx Seizures: No Hx Psychiatric Problems: Yes (BIPOLAR/SCHIZOPHRENIC DX IN 2020 AFTER DELIVERY) - Gastrointestinal Hx Gastroesophageal Reflux Disease: No - Endocrine Hx Renal Disease: No Hx End Stage Renal Disease: No Hx Liver Disease: No Hx Insulin Dependent Diabetes: No Hx Non-Insulin Dependent Diabetes: No Hx Hypothyroidism: Yes (DIAGNOSED IN 2007) Hx Hyperthyroidism: No - Hematic Hx Anemia: Yes Hx Sickle Cell Disease: No - Other Systems Hx Alcohol Use: No Hx Obesity: Yes - Additional Comments Anesthesia Medical History Comments: previous c/s
--- NOTE | 2021-12-03 10:07 | Progress Note ---
Labor Epidural - Labor Epidural Start Time: 09:45 Stop Time: 10:03 Per[facility]:: [facility] Procedure: Patient is requesting epidural for labor and pain. H&P, labs were reviewed. Patient IDed, H&P reviewed, all questions and concerns were answered, and consent was signed. Timeout was performed at bedside. Patient in sitting position. Sterile prep and drape was performed. 3ml of 1% lidocaine skin wheal at L[3]- L [4]. 17-gauge Tuohy epidural needle was advanced to loss of resistance with air technique 9cm. Negative CSF negative blood. Epidural catheter advanced to [15] centimeters. [negative] Aspiration [negative] test dose. Sterile dressing applied. Patient tolerated procedure.
[2021-12-03] MEDS: fentaNYL-BUPIV 2 MCG/ML-0.125% 200 MCG/100 ML BAG EPIDURAL SCH ×2 (10:45→20:50)
--- NOTE | 2021-12-03 11:08 | Event Note ---
Date: 12/03/21 I received sign out from Dr. Cedillo who states [facility], Dr. Bauer would prefer delivery at 36wk aware pt has received both doses of steroids, last at 7pm. Dr. Cedillo also related to me IUGR with normal umbilical artery dopplers done here at [facility]. I evaluated pt who denies headache or change in vision, urine output normal and clear more than 100c/hr. Pt received double sweeney balloon attached to 1liter of lactated ringers by Dr. Cedillo and pelvic exam by me now with only 1 balloon felt within the uterine cavity and when tugged, no ease to come forward. No vaginal portion of balloon felt. FHR intermittent wnl, difficulty to keep baby on external monitor due to patient habitus. Pitocin at 6mu/min. Confirmation that pt desires TOLAC aware of the risks, benefits and alternatives and desires TOLAC x24hrs which she states is up at 10pm tonight before she requests repeat c/section. FOB to bedside in agreement with patient. Pt just received epidural and is beginning to feel comfortable. Pt also shared previous c/section done at 4cm because she did not progress beyond this point. Pt still wants a TOLAC. All questions encouraged and answered.
--- NOTE | 2021-12-03 19:47 | Event Note ---
Date: 12/03/21 nurse told me that natasha's sweeney bulb fell out earlier with only 1 bulb inflated. Pelvic 60/-2, FHR not recording well therefore AROM done with large amount of clear fluid. IUPC placed without difficulty and then FSE successful on the 3rd attempt. Will continue PCN for GBS+. Hopeful for . All questions encouraged and answered.
[2021-12-03] MEDS ORDERED: SODIUM CHLORIDE 0.9% 1000 ML 1,000 ML VG SCH ×2 (21:00)
[2021-12-03] MEDS ORDERED: MAGNESIUM SULFATE 4 GM/100 ML BAG IV ONE (22:54)
[2021-12-03] MEDS ORDERED: MAGNESIUM SULFATE 40GM/1000ML 40 GM/1,000 ML BAG IV SCH (23:00)
[2021-12-03] MEDS ORDERED: MAGNESIUM SULFATE 2 GM/50 ML BAG IV ONE (23:00)
[2021-12-04] MEDS: ceFAZolin/NS 1 GM/50 ML 1 GM/50 ML BAG IV SCH (01:52)
[2021-12-04] MEDS ORDERED: CARBOPROST TROMETHAMINE 250 MCG/1 ML INJ IM ONE (05:43)
--- NOTE | 2021-12-04 06:32 | Event Note ---
Date: 12/04/21 CC: cHTN w/ superimposed pre-eclampsia, IUGR INTERVAL HISTORY: 26 y/o at 36 weeks admitted for management of cHTN w/ superimposed pre-eclampsia and IUGR. BP's were intermittently >160/110, but are ~ 150's/70's now. BMTZ x2 administered. She was seen by MFM. I spoke with Dr. Bauer, and he recommended delivery at 36 weeks. 24 hour urine protein = 242 mg. MgSO4 drip for seizure prophylaxis in active labor. No VB. Good FM. The patient desires TOLAC. The R/A/B were explained, including the risk of uterine rupture (less than 1%). The patient voiced understanding and wished to attempt . Cook catheter and Pitocin given to ripen cervix. The Cook catheter fell out yesterday. AROM and IUPC/FSE placed. Epidural administered. O: BP= 150/70 EFM= category 2 TOCO= irregular SVE= 5/60%/-2 LABS: GBS Culture (rectovaginal)= pending 24 hour urine collection= 242 mg RAD: BPP= 6/8 OB Umbilical Artery Dopplers= WNL IMP: 1.) 36 weeks 2.) cHTN w/ superimposed pre-eclampsia 3.) IUGR (moderate, 6th %-ile) 4.) IOL 5.) H/O Previous PLAN: 1.) S/P BMTZ x2. GBS RV culture ordered. Rx Ancef IV for GBS prophylaxis in lieu of PCN allergy. 2.) Seen by MFM. Delivery at 36 weeks recommended per telephone conversation. MgSO4 in active labor. Rx IV anti-HTN meds to keep BP <160/110. 3.) Etiology of IUGR is unknown. IOL per DIGITAT trial to decrease the risk of stillbirth. UA dopplers and EFM WNL. 4.) S/P ripening cervix with Cook catheter and low-dose pitocin. AROM'ed. Now on Pitocin.
[2021-12-04] MEDS ORDERED: FAMOTIDINE 20 MG/2 ML INJ IV SCH (09:40)
[2021-12-04] MEDS ORDERED: METOCLOPRAMIDE 10 MG/2 ML INJ IV SCH (10:00)
[2021-12-04] MEDS ORDERED: BICITRA ORAL LIQD 30ML PO ONE (10:37)
--- NOTE | 2021-12-04 10:45 | Event Note ---
Date: 12/04/21 I received sign out earlier from Dr. Campoverde at 8am and then I went to see pt. Pt declines any further induction and pelvic exam by me essentially unchanged. Risks, benefits and alternatives of repeat c/section discussed and no pt reveals with FOB giving the details that pt had to receive a lot of blood with her previous section and overhead page called with a lot of people in the room and pt put to sleep. With the increased risk of hemorrhage and pitocin turned off during the night due to non-reassuring FHR, plan for repeat c/section with blood on standby aware of recurrence risk. Pt with category FHR I now, declines further induction. Will plan for repeat section and NICU and anesthesiologist notified. All questions encouraged and answered.
[2021-12-04 11:36] LABS: Basophils % (Auto) 0.6 % (0.0-1.8); Eosinophils % (Auto) 0.5 % (0.0-4.3); Hematocrit 32.9 % (30.3-42.9); Hemoglobin 10.4 gm/dl (10.1-14.3); Lymphocytes # (Auto) 1.9 K/mm3 (1.2-5.4); Lymphocytes % (Auto) 24.1 % (13.4-35.0); Mean Corpuscular HGB Conc 32 % (30-34); Mean Corpuscular Volume 84 fl (79-97); Monocytes # (Auto) 1.1 K/mm3 (0.0-0.8); Monocytes % (Auto) 13.3 % (0.0-7.3); Platelet Count 324 K/mm3 (140-440); Red Blood Count 3.93 M/mm3 (3.65-5.03); Red Cell Distribution Width 15.3 % (13.2-15.2)
[2021-12-04] MEDS ORDERED: miSOPROStol 200 MCG TAB ONE (12:40)
[2021-12-04] MEDS ORDERED: ceFAZolin/STERILE WATER 2 GM/20 ML SYRINGE IV ONE ×2 (12:55)
[2021-12-04] MEDS ORDERED: dexAMETHasone 20 MG/5 ML VIAL ONE (12:57)
[2021-12-04] MEDS ORDERED: LIDOCAINE 2%/EPINEPHRINE 1:200,000 VIAL (20 ML) INFILTRATI ONE (12:57)
[2021-12-04] MEDS ORDERED: SODIUM BICARB 8.4% 50 MEQ/50 ML VIAL IV ONE (12:57)
[2021-12-04] MEDS ORDERED: BUPIVACAINE/PF (0.25%) 2.5 MG/ML 30 ML VIAL INFILTRATI ONE (12:57)
[2021-12-04] MEDS ORDERED: KETOROLAC 30 MG/1 ML INJ ONE (12:57)
[2021-12-04] MEDS ORDERED: SODIUM CHLORIDE 0.9% IRR 1,500 ML BOTTLE IR ONE (13:00)
[2021-12-04] MEDS ORDERED: WATER FOR IRRIG STERILE 1,500 ML BOTTLE IR ONE (13:00)
[2021-12-04] MEDS ORDERED: BUPIVACAINE/PF (0.5%) 5 MG/1 ML 30 ML VIAL INFILTRATI ONE (14:46)
[2021-12-04] MEDS ORDERED: LANOLIN/ZINC/DIMETHICONE (LANSINOH) 7 GM TP PRN (16:45)
[2021-12-04] MEDS ORDERED: SENNOSIDES 8.6 MG TAB PO PRN (16:45)
[2021-12-04] MEDS ORDERED: WITCH HAZEL/ GLYCERIN PAD TP PRN (16:45)
[2021-12-04] MEDS ORDERED: HYDROCORTISONE 25 MG RECTAL SUPP PR PRN (16:45)
[2021-12-04] MEDS ORDERED: IBUPROFEN 800 MG TAB PO PRN (16:45)
[2021-12-04] MEDS ORDERED: MAGNESIUM HYDROXIDE (MOM) ORAL LIQD UDC PO PRN (16:45)
[2021-12-04] MEDS ORDERED: MORPHINE 4 MG/1 ML INJ IV PRN (16:45)
[2021-12-04] MEDS ORDERED: ACETAMINOPHEN 325 MG TAB PO PRN (16:45)
[2021-12-04] MEDS ORDERED: NALOXONE 0.4 MG/1 ML INJ IV PRN (16:45)
--- NOTE | 2021-12-04 16:54 | Procedure Note ---
OB Delivery Note - Delivery Date of Delivery: 12/04/21 Surgeon: PEBBLES BARR Estimated blood loss: other (1120cc by QBL) - Section Preop diagnosis: repeat (x1), nonreassuring FHR tracing, other (failed induction) Postop diagnosis: same section procedure: repeat low transverse Disposition: floor Complications: none Narrative: Date: 12/04/21 Surgeon: Pebbles Barr MD Preop Dx: IUP at 36.0wks, Hypertension, ?gestational vs chronic with superimposed preeclampsia, morbid obesity; category III FHR during the night, remote from delivery; Failed induction; H/O Hemorrhage with multiple bags of blood transfusion per pt and FOB report Postop Dx: same and partial abruption Procedure : Repeat Low Transverse section Anesthesia: Epidural Intake: 1300cc Output: 150cc clear EBL: 1120cc per QBL by nurse After the risks, benefits and alternatives of procedure discussed, patient signed consents and was taken to the operating room. Pt already had epidural and same was given additional anesthesia. After same was adequate, patient was prepped and draped in the usual sterile fashion. Gamez catheter was already in place and draining clear urine. Pt was given prophylactic antibiotic per protocol and time out was done Pfannenstiel skin incision was made thru previous section scar and taken sharply to the fascia and the incision extended using electrocautery. Superior edge of the fascia was grasped with blane clamps and the rectus muscle using blunt dissection and also using electrocautery. Lower portion of the fascia also sharply using electrocautery. Rectus muscle in the midline and Peritoneal cavity entered sharply thru the dense scar tissue and extended with good visualization of the bladder. Small portion of bladder peritoneum was adherent to left side of anterior uterine wall and same was sharply using metzenbaum scissors. The remaining bladder flap was created sharply using metzenbaum scissors. Kenny large retractor placed. Uterus tilted to right side and same alligned manually by me then the Lower uterine segment then entered transversely and amniotic sac entered using allys clamps. Uterine incision extended using bandage scissors and partial abruption of anterior placenta noted. delivered, bulb suctioned, cord clamped and baby handed to waiting pediatricians. Placenta then delivered completely and uterine cavity cleared of all clots and debri. Posteriorly the lower uterine segment had fragmented endometrial tissue that bled easily with all amniotic membranes removed. The uterus was not exteriorized and closed in 3 layers using 0-monocryl] suture in a running locked fashion and then an additional layer of imbrication suture. A third layer of interrupted 0-monocryl was needed x 4 across the uterine incision to achieve hemostasis. Surgicel powder placed and Excellent hemostasis noted. The gutters were cleared of clots and debri and anterior peritoneum closed with 0-monocryl and the rectus muscle with scar also included in this closure. Rectus fascia closed with 0-vicryl suture in a running fashion and subcutaneous tissue copiously irrigated with normal saline and re-approximated using 3-0 vicryl suture in a subcutaneous fashion. Excellent hemostasis remains. The skin was closed with 4-0 monocryl suture and steristrips placed with pressure dressing. Sponge, lap, instrument and needle counts x3 were normal. Patient tolerated the procedure well and was taken to recovery room stable. Pt given cytotec 800mcg per rectum with previous hemorrhage history and current blood loss calculated and abruption. Pt to receive amp/gent/clinda with acute endomyometritis. Findings: Viable female infant, APGARS 9/9 and weight 2700g. Normal uterus that deviates to right, placental abruption less than 50%, normal tubes and ovaries. Pathology: placenta - A at 1 minute: 9 at 5 minutes: 9 Infant Gender: Female (wt 2700g; no fluid seen, previously clear during labor)
[2021-12-04] MEDS ORDERED: AMPICILLIN/NS 2 GM/100 ML 2 GM/100 ML BAG IV SCH (17:00)
[2021-12-04] MEDS ORDERED: GENTAMICIN 450 MG in SODIUM CHLORIDE 0.9% 100 ML IV SCH (17:00)
[2021-12-04] MEDS ORDERED: OXYTOCIN DRIP 30 UNITS/500 ML BAG IV SCH (17:00)
[2021-12-04 18:26] LABS: Hematocrit 30.8 % (30.3-42.9); Hemoglobin 9.5 gm/dl (10.1-14.3); Mean Corpuscular HGB Conc 31 % (30-34); Mean Corpuscular Volume 83 fl (79-97); Platelet Count 302 K/mm3 (140-440); Red Blood Count 3.71 M/mm3 (3.65-5.03); Red Cell Distribution Width 14.9 % (13.2-15.2)
[2021-12-04 19:28] LABS: Basophils % (Manual) 0 % (0.0-1.8); Eosinophils % (Manual) 0 % (0.0-4.3); Total Cells Counted 100
[2021-12-04 19:29] LABS: Platelet Estimate Consistent w Auto
[2021-12-04] MEDS: oxyCODONE /ACETAMINOPHEN 5-325MG TAB PO PRN (20:07)
--- NOTE | 2021-12-04 20:23 | Event Note ---
Date: 12/04/21 pt evaluated post delivery and repeat CBC with hgb 9.5 and urine output with clear urine at 100cc/hr; Later another CBC at 10.4 seen and label paster on the floor states this lab was drawn at 11:30am althought shown resulting later. Therefore last hgb post op was 9.5 and not 10.4 was preop and drawn earlier today. Will transfer pt to mother/baby stable. Pt was also feeding baby with bottle and comfortable. All questions encouraged and answered.
[2021-12-04] MEDS: KETOROLAC 30 MG/1 ML INJ IV PRN (23:06)
[2021-12-04] MEDS ORDERED: D5W/LACTATED RINGERS 1,000 ML IV SCH (23:45)
[2021-12-05] MEDS: oxyCODONE /ACETAMINOPHEN 5-325MG TAB PO PRN ×5 (02:06→22:07)
[2021-12-05] MEDS: SIMETHICONE 80 MG CHEW TAB PO PRN ×3 (04:52→14:57)
--- NOTE | 2021-12-05 07:57 | Post Anesthesia Evaluation ---
- Post Anesthesia Evaluation Patient Participated: Yes Airway Patent: Yes Stable Respiratory Function: Yes Nausea/Vomiting: No Temp > 96.8F: Yes Pain Manageable: Yes Adequeate Hydration: Yes Anesthesia Complications: No Block Receding Appropriately: Yes
[2021-12-05] MEDS: KETOROLAC 30 MG/1 ML INJ IV PRN ×2 (08:45→14:09)
[2021-12-05] MEDS: PRENATAL VIT27-FE FUMARATE-FOLIC ACID VIT TAB PO SCH (08:46)
[2021-12-05] MEDS ORDERED: FERROUS SULFATE 325 MG TAB PO SCH (10:00)
--- NOTE | 2021-12-05 10:22 | Progress Note ---
Assessment and Plan A: day 1 S/P repeat LTCS. Anemia. Hypertension. Obesity. P: Supplement with oral iron. Start Labetalol 100 mg po BID. Patient to ambulate. Continue routine /postop care. Subjective - Subjective Date of service: 12/05/21 Principal diagnosis: day 1 S/P repeat LTCS Patient reports: appetite normal, voiding normally, pain well controlled, flatus, ambulating normally, no dizzy ambulation, no nauseated : doing well Objective - Vital Signs Latest vital signs: Vital Signs Temp Pulse Resp BP BP Pulse Ox Pulse Ox 12/05/21 09:51 94 H 155/92 12/05/21 07:50 82 20 153/94 95 12/05/21 07:45 99 12/05/21 05:56 20 12/05/21 04:35 97.9 F 72 20 141/89 93 12/05/21 01:14 98 F 75 20 149/86 98 12/04/21 22:00 98.4 F 74 20 145/95 97 97 12/04/21 20:26 79 145/77 12/04/21 20:24 80 98 12/04/21 20:19 76 98 12/04/21 20:14 82 99 12/04/21 20:09 86 98 12/04/21 20:04 79 98 12/04/21 19:59 88 97 12/04/21 19:56 78 134/71 12/04/21 19:54 89 96 12/04/21 19:50 98.5 F 20 12/04/21 19:49 82 96 12/04/21 19:47 86 94 12/04/21 19:46 96 12/04/21 19:44 88 98 12/04/21 19:42 83 94 12/04/21 19:39 82 95 12/04/21 19:34 81 96 12/04/21 19:30 85 94 12/04/21 19:29 84 95 12/04/21 19:24 81 95 12/04/21 19:19 82 97 12/04/21 19:14 84 96 12/04/21 19:09 86 97 12/04/21 19:04 78 98 12/04/21 18:59 75 96 12/04/21 18:57 76 94 12/04/21 18:54 78 97 12/04/21 18:49 94 H 97 12/04/21 18:44 73 97 12/04/21 18:39 72 98 12/04/21 18:34 72 97 12/04/21 18:29 78 97 12/04/21 18:24 73 97 12/04/21 18:19 78 98 12/04/21 18:14 81 98 12/04/21 18:09 82 97 12/04/21 18:04 78 97 12/04/21 18:00 96 12/04/21 17:59 77 96 12/04/21 17:54 76 97 12/04/21 17:52 82 94 12/04/21 17:49 80 92 12/04/21 17:46 72 92 12/04/21 17:44 78 95 12/04/21 17:39 83 96 12/04/21 17:34 74 96 12/04/21 17:30 98.0 F 74 19 119/78 100 12/04/21 17:29 83 96 12/04/21 17:28 76 93 12/04/21 17:00 76 18 127/76 100 12/04/21 16:45 73 16 133/84 100 12/04/21 16:30 78 16 116/79 100 12/04/21 16:15 70 18 126/54 100 12/04/21 16:10 77 18 114/45 99 12/04/21 16:05 97.0 F L 85 17 135/90 99 12/04/21 11:00 97.9 F 12/04/21 10:35 85 135/63 Intake and Output 12/04/21 12/05/21 12/05/21 23:59 07:59 15:59 Intake Total 390 290 Output Total 650 1600 Balance -260 -1310 Intake: IV 150 50 CLEOCIN 900 MG/50 mL 900 50 50 mg In 50 ml @ 100 mls/hr IV Q8H [facility] Rx#:[id number] Intake, Free Water 240 240 Output: Urine 650 1600 Indwelling Catheter 300 1200 Void 400 Other: Total, Output Amount 300 400 # Voids Void 1 - Exam Cardiovascular: Present: Regular rate, No murmurs Lungs: Present: Clear to auscultation Abdomen: Present: normal appearance, soft, normal bowel sounds. Absent: distention, tenderness, guarding, rigidity Uterus: Present: normal, firm, fundal height below umbilicus. Absent: bogginess, tenderness Extremities: Present: edema (mild bilateral pedal edema). Absent: tenderness Incision: Present: dry, dressed - Labs Labs: Abnormal lab results 12/04/21 12/04/21 Range/Units 17:58 Unknown Hgb 9.5 L (10.1-14.3) gm/dl MCH 26 L 26 L (28-32) pg RDW 15.3 H (13.2-15.2) % [place] % (Auto) 13.3 H (0.0-7.3) % [place] # (Auto) 1.1 H (0.0-0.8) K/mm3 Seg Neuts % (Manual) 87.0 H (40.0-70.0) % Lymphocytes % (Manual) 11.0 L (13.4-35.0) % Seg Neutrophils # Man 8.3 H (1.8-7.7) K/mm3 Lymphocytes # (Manual) 1.0 L (1.2-5.4) K/mm3
[2021-12-05 10:42] LABS: Basophils % (Auto) 0.2 % (0.0-1.8); Eosinophils % (Auto) 0.1 % (0.0-4.3); Hematocrit 31.9 % (30.3-42.9); Hemoglobin 9.9 gm/dl (10.1-14.3); Lymphocytes % (Auto) 16.6 % (13.4-35.0); Mean Corpuscular HGB Conc 31 % (30-34); Mean Corpuscular Volume 83 fl (79-97); Monocytes # (Auto) 1.2 K/mm3 (0.0-0.8); Monocytes % (Auto) 10.2 % (0.0-7.3); Platelet Count 332 K/mm3 (140-440); Red Blood Count 3.83 M/mm3 (3.65-5.03)
[2021-12-05 10:54] LABS: Alanine Aminotransferase 97 units/L (7-56); Albumin 3.2 g/dL (3.9-5); Blood Urea Nitrogen 5 mg/dL (7-17); Calcium 8.9 mg/dL (8.4-10.2); Hemolysis Index 3
[2021-12-05 10:58] LABS: BUN/Creatinine Ratio 10
[2021-12-05] MEDS: IBUPROFEN 600 MG TAB PO PRN (22:07)
[2021-12-05] MEDS: FERROUS SULFATE 325 MG TAB PO SCH (22:07)
--- NOTE | 2021-12-06 00:47 | Progress Note ---
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 s/p elective repeat growth restriction Borderline elevated blood pressures on antihypertensive we will plan to continue to max out labetalol Continue routine postop care Blood pressure stable DC home tomorrow Karina Lyles MD Patient reports: appetite normal, voiding normally, pain well controlled, ambulating normally : doing well Objective - Vital Signs Latest vital signs: Vital Signs Temp Pulse Resp BP BP Pulse Ox Pulse Ox 12/05/21 22:11 87 147/84 12/05/21 14:09 87 115/67 12/05/21 09:51 94 H 155/92 12/05/21 07:50 82 20 153/94 95 12/05/21 07:45 99 12/05/21 05:56 20 12/05/21 04:35 97.9 F 72 20 141/89 93 12/05/21 01:14 98 F 75 20 149/86 98 Intake and Output 12/05/21 12/05/21 12/06/21 15:59 23:59 07:59 Intake Total 100 Output Total 300 Balance -200 Intake: IV 100 ceFAZolin 2 GM In NaCl 0. 100 9% 100 ml @ 200 mls/hr IV Q8H [facility] Rx#:[id number] Output: Urine 300 Indwelling Catheter 300 Other: Total, Output Amount 300 # Voids Indwelling Catheter 1 Void 1 - Exam Breasts: Present: deferred Cardiovascular: Present: Regular rate Lungs: Present: Clear to auscultation Abdomen: Present: normal appearance, soft, normal bowel sounds Uterus: Present: fundal height below umbilicus Extremities: Present: normal Deep Tendon Reflex Grade: Normal +2 Incision: Present: normal, dry, intact - Labs Labs: Abnormal lab results 12/05/21 12/05/21 Range/Units 10:09 10:09 WBC 11.9 H (4.5-11.0) K/mm3 Hgb 9.9 L (10.1-14.3) gm/dl MCH 26 L (28-32) pg [place] % (Auto) 10.2 H (0.0-7.3) % [place] # (Auto) 1.2 H (0.0-0.8) K/mm3 Seg Neutrophils % 72.9 H (40.0-70.0) % Seg Neutrophils # 8.7 H (1.8-7.7) K/mm3 Carbon Dioxide 21 L (22-30) mmol/L BUN 5 L (7-17) mg/dL Creatinine 0.5 L (0.6-1.2) mg/dL Glucose 118 H (65-100) mg/dL AST 48 H (5-40) units/L ALT 97 H (7-56) units/L Albumin 3.2 L (3.9-5) g/dL
[2021-12-06] MEDS: oxyCODONE /ACETAMINOPHEN 5-325MG TAB PO PRN ×2 (07:56→13:07)
[2021-12-06] MEDS: IBUPROFEN 600 MG TAB PO PRN ×2 (07:56→13:07)
[2021-12-06] MEDS: PRENATAL VIT27-FE FUMARATE-FOLIC ACID VIT TAB PO SCH (09:08)
[2021-12-06] MEDS: FERROUS SULFATE 325 MG TAB PO SCH (09:08)
[2021-12-06] MEDS ORDERED: NIFEdipine XL 60 MG TAB PO SCH (10:00)
--- NOTE | 2021-12-06 12:31 | Discharge Summary ---
Providers - Providers Date of Admission: 12/02/21 18:22 Date of discharge: 12/06/21 Attending physician: VIVEK CRAIN MD 12/02/21 18:06 Consult to Physician [CONS] Stat Comment: Consulting Provider: JAIDEN RODRIGUEZ Physician Instructions: Reason For Exam: IUGR,planned delivery Primary care physician: VIVEK CRAIN MD Hospitalization Delivery: Condition at discharge: Stable Disposition: HOME / SELF CARE / HOMELESS Plan - Discharge Medications Prescriptions: labetaloL [Labetalol 200mg TAB] 200 mg PO BID #60 Ibuprofen [Motrin] 800 mg PO Q8HR PRN 21 Days #40 tablet PRN Reason: Pain, Moderate (4-6) oxyCODONE /ACETAMINOPHEN [Percocet 5/325] 1 tab PO Q4HR PRN 21 Days #30 tab PRN Reason: Pain , Severe (7-10) - Provider Discharge Summary Additional instructions: [] Smoking cessation referral if applicable(refer to patient education folder for contact #) [] Refer to [facility]'s [facility] Booklet Call your doctor immediately for: * Fever > 100.5 * Heavy vaginal bleeding ( >1 pad per hour) * Severe persistent headache * Shortness of breath * Reddened, hot, painful area to leg or breast * Drainage or odor from incision. * Keep incision clean and dry at all times and follow doctor's instructions regarding bathing/showering - Follow up plan Follow up: VIVEK CRAIN MD [Primary Care Provider] - 7 Days
[2021-12-06 17:47] VITALS: BP 107/65
== END 2021-12-06 18:50 | disposition home or self-care (01) | DRG 765 ==
LOC: TRG 14:37 → APU 14:41 → TRG 14:41 → LD 18:51 → APU 18:51 → LD 12-02 18:22 → TRG 12-04 09:45 → APU 12-04 13:10 → LD 12-04 17:26 → OB 12-04 21:30
PROVIDERS: ADMIT Obstetrics & Gynecology; ATTEND Obstetrics & Gynecology
PROC: 10D00Z1 Extraction of Products of Conception, Low, Open Approach (ICD-10-PCS; principal; 2021-12-04)
DX: O36.5930 Maternal care for other known or suspected poor fetal growth, third trimester, not applicable or unspecified (principal); O60.14X0 Preterm labor third trimester with preterm delivery third trimester, not applicable or unspecified; O45.93 Premature separation of placenta, unspecified, third trimester; O34.211 Maternal care for low transverse scar from previous cesarean delivery; Z3A.35 35 weeks gestation of pregnancy; O11.4 Pre-existing hypertension with pre-eclampsia, complicating childbirth; O10.92 Unspecified pre-existing hypertension complicating childbirth; Z37.0 Single live birth; O99.214 Obesity complicating childbirth; O76 Abnormality in fetal heart rate and rhythm complicating labor and delivery; E66.01 Morbid (severe) obesity due to excess calories; O90.81 Anemia of the puerperium; Z20.822 Contact with and (suspected) exposure to COVID-19
CPT/HCPCS: 36415; 76816; 76819; 76820; 80053; 81001; 82150; 82570; 83615; 83690; 83735; 84156; 84450; 84460; 84550; 85007; 85025; 85027; 86850; 86900; 86901; 87086; 87116; 88307; G0378; J3490; J7060; J7121; J7502; J0595; J0690; J0702; J1100; J1580; J1885; J2405; J2590; J3475; J7120; U0003